=== PATIENT | female | born 1935 | race Caucasian/White ===

== ENCOUNTER → 2020-01-17 | Outpatient (CLI) | payer MEDICARE ==
--- NOTE | 2020-01-17 14:09 | NM ---
EXAMINATION TYPE: NM bone scan whole body DATE OF EXAM: 01/17/2020 COMPARISON: NONE HISTORY: Pain Delayed whole-body scanning was performed following the injection of 24.6 mCi Tc 99m MDP. Images acq uired 3 hours post injection. FINDINGS: There is intense radiotracer accumulation noted to involve the T12 vertebral segment and to a lesser extent the L1 vertebral segment. There are also focal intense bilateral areas of uptake involving the approximate T10 and T11 segments within the pedicular regions which may reflect spondylolysis. Under lying lesions would be difficult to exclude. There is degenerative uptake noted about the shoulders, sternoclavicular joints, wrists, knees and ankles and mid feet. Periodontal disease right hemimandibl e. IMPRESSION: 1. Nonspecific intense uptake involving the T12 and to a lesser extent the L1 vertebral segments whic h may reflect recent nonspecific fractures. 3. Pedicle uptake as discussed above.
== END | disposition home or self-care (01) ==
LOC: RADNMMAIN 09:34
PROVIDERS: ATTEND Physical Medicine & Rehabilitation
DX: M47.817 Spondylosis without myelopathy or radiculopathy, lumbosacral region (principal); M41.26 Other idiopathic scoliosis, lumbar region; M43.16 Spondylolisthesis, lumbar region; M16.0 Bilateral primary osteoarthritis of hip; M48.062 Spinal stenosis, lumbar region with neurogenic claudication; Z86.39 Personal history of other endocrine, nutritional and metabolic disease
CPT/HCPCS: 78306; A9503

== ENCOUNTER 2022-07-20 14:51 | Inpatient (IN) | payer MEDICARE ==
--- NOTE | 2022-07-20 15:37 | ED ---
General Adult HPI - General Chief complaint: Chest Pain Stated complaint: Chest discomfort Time Seen by Provider: 07/20/22 15:13 Source: EMS Mode of arrival: EMS Limitations: no limitations - History of Present Illness Initial comments: Dictation was produced using [employer] dictation software. please excuse any grammatical, word or spelling errors. Chief Complaint: 86-year-old female presents to the emergency department with chest pain History of Present Illness: Patient is a 86-year-old male presents to the emergency department with chest pain. She described it as like a pressure sitting on her chest earlier today. He called EMS after having symptoms for several minutes. EMS arrived provide patient with aspirin and nitroglycerin. She states that the medicine results of symptoms. Patient denies any history of heart attacks. She states that she does have strong family history. Patient has history of diabetes and dyslipidemia. Patient is asymptomatic at the bedside. The ROS documented in this emergency department record has been reviewed and confirmed by me. Those systems with pertinent positive or negative responses have been documented in the HPI. All other systems are other negative and/or noncontributory. PHYSICAL EXAM: General Impression: Alert and oriented x3, not in acute distress HEENT: Normocephalic atraumatic, extra-ocular movements intact, pupils equal and reactive to light bilaterally, mucous membranes moist. Cardiovascular: Heart regular rate and rhythm Chest: Able to complete full sentences, no retractions, no tachypnea Abdomen: abdomen soft, non-tender, non-distended, no organomegaly Musculoskeletal: Pulses present and equal in all extremities, no peripheral edema Motor: no focal deficits noted Neurological: CN II-XII grossly intact, no focal motor or sensory deficits noted Skin: Intact with no visualized rashes Psych: Normal affect and mood ED course: 86-year-old female presents to the emergency department for symptoms concerning for ACS. Ends upon arrival are within acceptable limits. Patient has deep T-wave inversions in V3 and aVF. No ST elevations EKG concerning for ischemia Nursing notes and chart review was performed EKG interpreted by me: Ventricular rate 61, sinus rhythm,. 159, QRS 92, QTC 428. No GA prolongation, no QTC prolongation. T-wave inversions in lead 3 and aVF. EKG is suspicious for ischemia. Repeat EKG negative for dynamic changes Laboratory evaluation obtained. CBC, coag panel is unremarkable. Metabolic panel is negative. Troponin is 3.910. Chest x-ray shows medial lobe opacity concerning for mass or adenopathy. Started on heparin. Reevaluated at bedside at 4:30 PM. Continues to deny any chest symptoms currently. Patient started on heparin will be admitted with consultation to cardiology. Case discussed with Dr. Ojeda who is willing to accept patients care on behalf of of [facility] hospitalist group. Critical care time 33 minutes - Related Data Allergies Allergy/AdvReac Type Severity Reaction Status Date / Time No Known Allergies Allergy Verified 07/20/22 15:07 Review of Systems ROS Statement: Those systems with pertinent positive or pertinent negative responses have been documented in the HPI. ROS Other: All systems not noted in ROS Statement are negative. Past Medical History Past Medical History: Diabetes Mellitus, Hyperlipidemia, Hypertension History of Any Multi-Drug Resistant Organisms: None Reported Past Surgical History: Hysterectomy, Orthopedic Surgery Past Psychological History: No Psychological Hx Reported Smoking Status: Never smoker Past Alcohol Use History: None Reported Past Drug Use History: None Reported General Exam Limitations: no limitations Course Vital Signs 07/20/22 15:03 Pulse Rate 71 Respiratory 18 Rate Blood Pressure 156/81 O2 Sat by Pulse 100 Oximetry Medical Decision Making - Lab Data Result diagrams: 07/20/22 15:30 07/20/22 15:30 Lab Results 07/20/22 07/20/22 07/20/22 Range/Units 15:30 15:30 15:30 WBC 8.5 (3.8-10.6) k/uL RBC 3.93 (3.80-5.40) m/uL Hgb 12.3 (11.4-16.0) gm/dL Hct 37.4 (34.0-46.0) % MCV 95.1 (80.0-100.0) fL MCH 31.4 (25.0-35.0) pg MCHC 33.0 (31.0-37.0) g/dL RDW 13.9 (11.5-15.5) % Plt Count 251 (150-450) k/uL MPV 8.6 Neutrophils % 78 % Lymphocytes % 12 % Monocytes % 6 % Eosinophils % 1 % Basophils % 0 % Neutrophils # 6.6 (1.3-7.7) k/uL Lymphocytes # 1.0 (1.0-4.8) k/uL Monocytes # 0.5 (0-1.0) k/uL Eosinophils # 0.1 (0-0.7) k/uL Basophils # 0.0 (0-0.2) k/uL PT 10.7 (9.0-12.0) sec INR 1.0 (<1.2) APTT 25.6 (22.0-30.0) sec Sodium 138 (137-145) mmol/L Potassium 4.2 (3.5-5.1) mmol/L Chloride 106 (98-107) mmol/L Carbon Dioxide 27 (22-30) mmol/L Anion Gap 5 mmol/L BUN 19 H (7-17) mg/dL Creatinine 0.86 (0.52-1.04) mg/dL Est GFR (CKD-EPI)AfAm 71 (>60 ml/min/1.73 sqM) Est GFR (CKD-EPI)NonAf 61 (>60 ml/min/1.73 sqM) Glucose 194 H (74-99) mg/dL Calcium 8.7 (8.4-10.2) mg/dL Magnesium 1.8 (1.6-2.3) mg/dL Total Bilirubin 0.6 (0.2-1.3) mg/dL AST 62 H (14-36) U/L ALT 16 (4-34) U/L Alkaline Phosphatase 63 (38-126) U/L Troponin I (0.000-0.034) ng/mL Total Protein 6.5 (6.3-8.2) g/dL Albumin 3.8 (3.5-5.0) g/dL 07/20/22 Range/Units 15:30 WBC (3.8-10.6) k/uL RBC (3.80-5.40) m/uL Hgb (11.4-16.0) gm/dL Hct (34.0-46.0) % MCV (80.0-100.0) fL MCH (25.0-35.0) pg MCHC (31.0-37.0) g/dL RDW (11.5-15.5) % Plt Count (150-450) k/uL MPV Neutrophils % % Lymphocytes % % Monocytes % % Eosinophils % % Basophils % % Neutrophils # (1.3-7.7) k/uL Lymphocytes # (1.0-4.8) k/uL Monocytes # (0-1.0) k/uL Eosinophils # (0-0.7) k/uL Basophils # (0-0.2) k/uL PT (9.0-12.0) sec INR (<1.2) APTT (22.0-30.0) sec Sodium (137-145) mmol/L Potassium (3.5-5.1) mmol/L Chloride (98-107) mmol/L Carbon Dioxide (22-30) mmol/L Anion Gap mmol/L BUN (7-17) mg/dL Creatinine (0.52-1.04) mg/dL Est GFR (CKD-EPI)AfAm (>60 ml/min/1.73 sqM) Est GFR (CKD-EPI)NonAf (>60 ml/min/1.73 sqM) Glucose (74-99) mg/dL Calcium (8.4-10.2) mg/dL Magnesium (1.6-2.3) mg/dL Total Bilirubin (0.2-1.3) mg/dL AST (14-36) U/L ALT (4-34) U/L Alkaline Phosphatase (38-126) U/L Troponin I 3.910 H* (0.000-0.034) ng/mL Total Protein (6.3-8.2) g/dL Albumin (3.5-5.0) g/dL Disposition Clinical Impression: NSTEMI (non-ST elevated myocardial infarction) Disposition: ADMITTED IP TO THIS HOSP Condition: Serious Referrals: Pierce Melendez MD [Primary Care Provider] - 1-2 days Decision Time: 16:37
[2022-07-20 15:42] LABS: Basophils % (A) 0 %; Eosinophils # (A) 0.1 k/uL (0-0.7); Eosinophils % (A) 1 %; HCT 37.4 % (34.0-46.0); HGB 12.3 gm/dL (11.4-16.0); Lymphocytes % (A) 12 %; MCH 31.4 pg (25.0-35.0); MCV 95.1 fL (80.0-100.0); Mean Platelet Volume 8.6; Monocytes # (A) 0.5 k/uL (0-1.0); Monocytes % (A) 6 %; Neutrophils # (A) 6.6 k/uL (1.3-7.7); Neutrophils % (A) 78 %; Platelet Count 251 k/uL (150-450); RBC 3.93 m/uL (3.80-5.40); RDW 13.9 % (11.5-15.5); WBC 8.5 k/uL (3.8-10.6)
[2022-07-20 15:51] LABS: Partial Thromboplastin Time 25.6 sec (22.0-30.0); Prothrombin Time 10.7 sec (9.0-12.0)
[2022-07-20 15:58] LABS: Albumin 3.8 g/dL (3.5-5.0); Calcium 8.7 mg/dL (8.4-10.2); Magnesium 1.8 mg/dL (1.6-2.3); Potassium 4.2 mmol/L (3.5-5.1); Total Bilirubin 0.6 mg/dL (0.2-1.3); Total Protein 6.5 g/dL (6.3-8.2)
--- NOTE | 2022-07-20 16:19 | XR ---
EXAMINATION TYPE: XR chest 2V DATE OF EXAM: 07/20/2022 3:41 PM COMPARISON: None TECHNIQUE: XR chest 2V Frontal and lateral views of the chest. CLINICAL INDICATION:Female, 86 years old with history of Chest Pain; FINDINGS: Lungs/Pleura: Medial aspect of the right upper lobe demonstrates a 4.2 x 2.4 cm opacity. There is no evidence of pleural effusion, focal consolidation, or pneumothorax. Pulmonary vascularity: Unremarkable. Heart/mediastinum: Cardiomediastinal silhouette is unremarkable. Musculoskeletal: No acute osseous pathology. IMPRESSION: Right upper lobe medial opacity concerning for mass or adenopathy. Cross-sectional imaging required f or further evaluation.
[2022-07-20] MEDS ORDERED: HEPARIN SODIUM 1,000 UN/ML (10ML VL) IV ONE (16:20)
[2022-07-20] MEDS ORDERED: HEPARIN SODIUM 1,000 UN/ML (10ML VL) IV PRN (16:20)
[2022-07-20] MEDS ORDERED: HEPARIN SOD,PORK IN 0.45% NACL 25,000 UNIT in 0.45% NACL 1 250ML.BAG IV SCH (16:30)
[2022-07-20] MEDS ORDERED: NITROGLYCERIN SL TABS 0.4 MG TAB SUBLINGUAL PRN (16:37)
[2022-07-20] MEDS: NITROGLYCERIN OINT 1 INCH/GM PACKET TOPICAL SCH (18:31)
[2022-07-20 20:05] LABS: Glucose,Whole Blood 207 mg/dL (70-110)
[2022-07-20] MEDS ORDERED: DEXTROSE 50% SYRINGE 50 ML IVP PRN ×2 (20:47)
[2022-07-20 20:59] LABS: Glucose,Whole Blood 221 mg/dL (70-110)
[2022-07-20] MEDS: INSULIN ASPART (NovoLOG) 100 UNIT/ML VIAL SQ SCH (21:06)
[2022-07-20] MEDS: INSULIN DETEMIR (LEVEMIR) 100 UNIT/ML SYR SQ SCH (21:54)
[2022-07-21] MEDS: NITROGLYCERIN OINT 1 INCH/GM PACKET TOPICAL SCH ×3 (00:24→18:13)
[2022-07-21 06:16] LABS: Glucose,Whole Blood 140 mg/dL (70-110)
[2022-07-21] MEDS: INSULIN ASPART (NovoLOG) 100 UNIT/ML VIAL SQ SCH ×4 (06:38→22:00)
[2022-07-21] MEDS: hydrALAZINE HCL 25 MG TAB PO SCH ×2 (06:40→21:57)
[2022-07-21] MEDS: PANTOPRAZOLE 40 MG TABLET PO SCH (06:40)
[2022-07-21] MEDS: ATORVASTATIN 20 MG TAB PO SCH (08:05)
[2022-07-21] MEDS: METOPROLOL SUCCINATE (ER) 25 MG TAB.ER.24H PO SCH (08:06)
[2022-07-21] MEDS ORDERED: ASPIRIN 325 MG TAB PO SCH (09:00)
[2022-07-21 10:49] LABS: LDL Cholesterol,Calculated 55.7 mg/dL (0.0-131.0); VLDL Calculation 17.48 mg/dL (5.00-40.00)
--- NOTE | 2022-07-21 11:32 | P.HPIM ---
History of Present Illness 86-year-old female came in with complaints of chest pressure like sensation. She doesn't have any previous history of coronary artery disease patient started having symptoms of shortness of breath about couple days ago. Patient pain is better patient pain is nonradiating no not associated with diaphoresis. Patient does have a syncopal event family history of coronary artery disease. A since troponins of 4.7, 4.2 and 3.9 REVIEW OF SYSTEMS: CONSTITUTIONAL: No fever, no malaise, no fatigue. HEENT: No recent visual problems or hearing problems. Denied any sore throat. CARDIOVASCULAR: No orthopnea, PND, no palpitations, no syncope. PULMONARY: No shortness of breath, no cough, no hemoptysis. GASTROINTESTINAL: No diarrhea, no nausea, no vomiting, no abdominal pain. NEUROLOGICAL: No headaches, no weakness, no numbness. HEMATOLOGICAL: Denies any bleeding or petechiae. GENITOURINARY: Denies any burning micturition, frequency, or urgency. MUSCULOSKELETAL/RHEUMATOLOGICAL: Denies any joint pain, swelling, or any muscle pain. ENDOCRINE: Denies any polyuria or polydipsia. The rest of the 14-point review of systems is negative. PHYSICAL EXAMINATION: GENERAL: The patient is alert and oriented x3, not in any acute distress. Well developed, well nourished. HEENT: Pupils are round and equally reacting to light. EOMI. No scleral icterus. No conjunctival pallor. Normocephalic, atraumatic. No pharyngeal erythema. No thyromegaly. CARDIOVASCULAR: S1 and S2 present. No murmurs, rubs, or gallops. PULMONARY: Chest is clear to auscultation, no wheezing or crackles. ABDOMEN: Soft, nontender, nondistended, normoactive bowel sounds. No palpable organomegaly. MUSCULOSKELETAL: No joint swelling or deformity. EXTREMITIES: No cyanosis, clubbing, or pedal edema. NEUROLOGICAL: Gross neurological examination did not reveal any focal deficits. SKIN: No rashes. Assessment and plan possible non-ST elevation myocardial infarction: Patient may have had TX about couple days ago. Patient is on IV heparin cardiology will evaluate the patient. Patient doesn't have any chest pain at this time -Shortness of breath secondary to TX. -Type 2 diabetes mellitus patient's hemoglobin A1c 6.8 well-controlled blood sugars at home patient uses 40 units of Lantus at home which is cut down to 20 units at this time as patient is nothing by mouth and the patient is also on sliding scale insulin. Patient will be switched back to 40 units once she is started on her diet. Hyperlipidemia Hypertension - DVT prophylaxis: She is on IV heparin Past Medical History Past Medical History: Diabetes Mellitus, Hyperlipidemia, Hypertension History of Any Multi-Drug Resistant Organisms: None Reported Past Surgical History: Hysterectomy, Orthopedic Surgery Past Psychological History: No Psychological Hx Reported Smoking Status: Never smoker Past Alcohol Use History: None Reported Past Drug Use History: None Reported Medications and Allergies Home Medications Medication Instructions Recorded Confirmed Type Ergocalciferol (Vitamin D2) 1,250 mcg PO STEPHENSON 07/20/22 07/20/22 History [Drisdol (50,000 Iu)] Ibuprofen [Motrin] 800 mg PO Q6H PRN 07/20/22 07/20/22 History Insulin Glargine,Hum.rec.anlog 40 units SQ HS 07/20/22 07/20/22 History [Lantus Solostar Pen] Insulin Lispro [humaLOG Kwikpen] See Protocol SQ TID-W/MEALS 07/20/22 07/20/22 History Metoprolol Succinate [Metoprolol 25 mg PO DAILY 07/20/22 07/20/22 History Succinate ER] Pantoprazole [Protonix] 40 mg PO DAILY 07/20/22 07/20/22 History Rosuvastatin [Crestor] 10 mg PO DAILY 07/20/22 07/20/22 History hydrALAZINE HCL [Apresoline] 25 mg PO BID-W/MEALS 07/20/22 07/20/22 History Allergies Allergy/AdvReac Type Severity Reaction Status Date / Time No Known Allergies Allergy Verified 07/20/22 17:38 Physical Exam Vitals: Vital Signs Temp Pulse Pulse Resp BP BP Pulse Ox 07/21/22 08:00 97.6 F 71 16 134/70 98 07/21/22 03:58 98.3 F 63 12 135/74 99 07/21/22 00:00 98.5 F 66 12 139/70 97 07/20/22 20:00 97.9 F 63 12 123/55 100 07/20/22 19:35 97 07/20/22 17:46 97.9 F 78 14 134/72 100 07/20/22 17:09 97.9 F 63 18 156/83 98 07/20/22 15:03 71 18 156/81 100 Intake and Output 07/20/22 07/21/22 07/21/22 22:59 06:59 14:59 Intake Total 52.197 Balance 52.197 Intake: Intake, IV Titration 52.197 Amount Heparin Sod,Pork in 0.45% 52.197 NaCl 25,000 unit In 0.45 % NaCl 1 250ml.bag @ 12 UNITS/KG/HR 7.62 mls/hr IV .Q24H [facility] Rx#: [id number] Other: Voiding Method Toilet Toilet Toilet # Voids 1 Weight 63.503 kg Results CBC & Chem 7: 07/20/22 15:30 07/20/22 15:30 Labs: Abnormal Lab Results - Last 24 Hours (Table) 07/20/22 07/20/22 07/20/22 Range/Units 15:30 15:30 18:45 APTT (22.0-30.0) sec BUN 19 H (7-17) mg/dL Glucose 194 H (74-99) mg/dL POC Glucose (mg/dL) (70-110) mg/dL Hemoglobin A1c (0.0-6.0) % AST 62 H (14-36) U/L Troponin I 3.910 H* 4.210 H* (0.000-0.034) ng/mL 07/20/22 07/20/22 07/20/22 Range/Units 20:04 20:58 22:31 APTT (22.0-30.0) sec BUN (7-17) mg/dL Glucose (74-99) mg/dL POC Glucose (mg/dL) 207 H 221 H (70-110) mg/dL Hemoglobin A1c (0.0-6.0) % AST (14-36) U/L Troponin I 4.740 H* (0.000-0.034) ng/mL 07/20/22 07/20/22 07/21/22 Range/Units 22:31 22:31 06:14 APTT 76.3 H (22.0-30.0) sec BUN (7-17) mg/dL Glucose (74-99) mg/dL POC Glucose (mg/dL) 140 H (70-110) mg/dL Hemoglobin A1c 6.8 H (0.0-6.0) % AST (14-36) U/L Troponin I (0.000-0.034) ng/mL 07/21/22 Range/Units 06:32 APTT 44.2 H (22.0-30.0) sec BUN (7-17) mg/dL Glucose (74-99) mg/dL POC Glucose (mg/dL) (70-110) mg/dL Hemoglobin A1c (0.0-6.0) % AST (14-36) U/L Troponin I (0.000-0.034) ng/mL Thrombosis Risk Factor Assmnt - Choose All That Apply Each Risk Factor Represents 2 Points: Age 61-74 years Each Risk Factor Represents 3 Points: Age 75 years or older Other congenital or acquired thrombophilia - If yes, enter type in comment: No Thrombosis Risk Factor Assessment Total Risk Factor Score: 5 Thrombosis Risk Factor Assessment Level: High Risk
[2022-07-21 12:06] LABS: Glucose,Whole Blood 108 mg/dL (70-110)
[2022-07-21] MEDS ORDERED: ATORVASTATIN 80 MG TAB PO STA (13:04)
[2022-07-21] MEDS ORDERED: ASPIRIN 325 MG TAB PO STA (13:04)
[2022-07-21] MEDS ORDERED: NITROGLYCERIN SL TABS 0.4 MG TAB SUBLINGUAL PRN ×2 (13:04→19:01)
[2022-07-21] MEDS ORDERED: ALPRAZolam 0.5 MG TAB PO PRN (13:04)
[2022-07-21] MEDS ORDERED: ALPRAZolam 0.25 MG TAB PO PRN (13:04)
[2022-07-21] MEDS ORDERED: fentaNYL (PF) 50 MCG/ML 2 ML AMP ONE (15:44)
[2022-07-21] MEDS ORDERED: HEPARIN SODIUM 1,000 UN/ML (10ML VL) ONE (15:44)
[2022-07-21] MEDS ORDERED: VERAPAMIL 2.5 MG/ML 2 ML AMP ONE (15:44)
[2022-07-21] MEDS ORDERED: SODIUM CHLORIDE 0.9% 1,000 ML IV ONE (15:47)
[2022-07-21] MEDS ORDERED: IV FLUID CONTINUATION 1,000 ML IV ONE (15:56)
[2022-07-21] MEDS: fentaNYL (PF) 50 MCG/ML 2 ML AMP IV ONE ×2 (16:04→17:06)
[2022-07-21] MEDS ORDERED: MIDAZOLAM 2 MG/2 ML VIAL IV ONE (16:04)
[2022-07-21] MEDS: LIDOCAINE 1% INJ 10MG/ML (5 ML VIAL-PF) SQ ONE ×2 (16:06→17:09)
[2022-07-21] MEDS ORDERED: VERAPAMIL SYRINGE (5 MG/10 ML) INTRAARTER ONE (16:08)
[2022-07-21] MEDS: HEPARIN SODIUM 1,000 UN/ML (10ML VL) IV ONE ×3 (16:26→17:25)
[2022-07-21] MEDS ORDERED: CLOPIDOGREL 75 MG TAB ONE (16:30)
[2022-07-21] MEDS ORDERED: CLOPIDOGREL 75 MG TAB PO ONE (16:34)
[2022-07-21] MEDS ORDERED: IOPAMIDOL-370 125ML BTL INJ ONE (17:39)
[2022-07-21] MEDS ORDERED: RX INFO: IV CONTRAST WAS GIVEN 1 EACH MISC MISCELLANE PRN (19:01)
[2022-07-21] MEDS ORDERED: ATROPINE SULFATE 0.1 MG/ML 10ML SYRINGE IV PRN (19:01)
[2022-07-21] MEDS ORDERED: MAG HYDROX/AL HYDROX/SIMETH 30 ML CUP PO PRN (19:01)
[2022-07-21] MEDS ORDERED: ZOLPIDEM 5 MG TAB PO PRN (19:01)
[2022-07-21] MEDS: HYDROcodone/APAP 5-325MG 1 EACH TAB PO PRN (19:21)
[2022-07-21 20:33] LABS: Glucose,Whole Blood 161 mg/dL (70-110)
--- NOTE | 2022-07-21 21:09 | P.PRCINT ---
Percutaneous Coronary Int. - Percutaneous Coronary Intervention Percutaneous Coronary Intervention: PROCEDURES PERFORMED: Left heart catheterization, bilateral coronary angiography, IVUS RCA, PCI ostial RCA with a 3.5 x 12mm Xience SEBAS INDICATION: NSTEMI PROCEDURE: After the risks, benefits and alternatives of the above mentioned procedure explained in detail with the patient, informed consent was obtained. Patient was taken to the catheterization lab and prepped and draped in usual fashion. 1% lidocaine was used to anesthetize the right radial artery. A 6Fr sheath was partially inserted into the right radial site however appeared to be subintimal and not drawing back and therefore was pulled and pressure was held. Again a 6Fr sheath was placed in the right radial artery and had good blood return. Next left coronary angiography was performed with a 5-Macedonian JL 3.5 catheter and right coronary angiography was performed with a 5-Macedonian JR5 catheter in various views. Later in the procedure, a 6Fr AR 2.0 catheter was inserted into the left ventricle and pressure measurements were obtained. There was extreme tortuosity of the innominate artery making manipulation of the catheters very difficult. The decision was made to perform PCI of the RCA as this was the culprit. Initially a 6Fr AR 2 guide was attempted however not able to properly sit, then a 6Fr FR5 guide was used and able to subselectivey be engaged. A 0.014 whisper wire was advanced into the distal RCA. Initial balloon angioplasty with a 2.5 x 12mm balloon was used to predilate the ostial RCA lesion. There was no backup support and even with the help of a guideliner, the FR5 and wire came out. Attempts with a KR4H and FR4 were made however unable to easily manipulate the catheter given innominate toruosity. Patient did have some dynamic EKG changes however no signficant angina or chest pain. Given difficulty from a radial approach, the procedure was changed to femoral approach. A 6Fr sheath was placed in the right femoral artery using micropuncture. A 6Fr FR 5 catheter was used to engage the RCA. a 0.014 whisper wire and a 0.014 BMW wire were advanced into the distal RCA. The lesion was again predilated with a 3.0 NC balloon. Next a 3.5 x 12mm Xience SEBAS was deployed at the ostium of the RCA. The prox imal portion was "flared" with the same 3.5 balloon. IVUS was performed however only able to advance the IVUS catheter to the mid RCA. There was an additional radiolucency of the mid RCA which may have been related to a calcified thrombus however did not appear flow limiting or significant and given inability to easily pass a IVUS catheter to the lesion, was felt best treated medically. The wire was pulled and final angiograms were performed. Pre intervention there was 99% stenosis and HEENA 2 flow and post intervention there was <10% stenosis and HEENA 3 flow. The right radial sheath was removed and a TR band was placed with hemostasis achieved. Right femoral angiogram showed adequate anatomy for closure and therefore a 6Fr Angioseal was placed with hemostasis achieved. The patient tolerated the procedure well. Patient was transported back to the post catheterization holding area in stable condition. Conscious Sedation: Patient was monitored under the direct supervision of vision of myself for conscious sedation using Versed and fentanyl for a total duration of 116 minutes HEMODYNAMICS: Ao: 139/71 LV: 138/9, LVEDP 22mmHg SELECTIVE CORONARY ARTERIOGRAPHY: LEFT MAIN: The left main is a large caliber vessel which bifurcates into the LAD and circumflex. There is no significant stenosis. LEFT ANTERIOR DESCENDING CORONARY ARTERY: LAD is a large caliber vessel which wraps around to the apex. There is a lonf proximal to mid 30% stenosis and a more focal 80% stenosis of the mid LAD. There is a 50% stenosis of a small caliber diagonal 3 and otherwise mild luminal irregularties. LEFT CIRCUMFLEX CORONARY ARTERY: Left circumflex is a moderate caliber vessel with mild luminal irregularities. RIGHT CORONARY ARTERY: The right coronary artery is a small to moderate caliber vessel which gives off a PDA and PLV branch and is the dominant vessel. There is an ostial RCA 99% stenosis. There is an additional 50-60% radiolucency of the mid RCA which may be consistent with old calcified thrombus. There is other diffuse 20-30% stenosis. FINAL IMPRESSION: 1. CAD as described above including 80% mid LAD, 50% small caliber diagonal 3 branch, 99% ostial RCA stenosis and 50-60% radiolucenct mid RCA stenosis which may represent old calcified thrombus 2. S/p PCI ostial RCA with a 3.5 x 12mm Xience SEBAS 3. Elevated left sided filling pressures PLAN: 1. Aggressive risk factor modification per most recent ACC/AHA guidelines. 2. Continue dual antiplatelets for 12 months with aspirin and Plavix. 3. May consider staged PCI of LAD.
[2022-07-21] MEDS: INSULIN DETEMIR (LEVEMIR) 100 UNIT/ML SYR SQ SCH (21:57)
[2022-07-22 06:07] LABS: Glucose,Whole Blood 135 mg/dL (70-110)
[2022-07-22] MEDS: NITROGLYCERIN OINT 1 INCH/GM PACKET TOPICAL SCH ×4 (06:55→17:36)
[2022-07-22] MEDS: PANTOPRAZOLE 40 MG TABLET PO SCH (06:56)
[2022-07-22] MEDS: INSULIN ASPART (NovoLOG) 100 UNIT/ML VIAL SQ SCH ×4 (06:56→21:08)
[2022-07-22] MEDS: hydrALAZINE HCL 25 MG TAB PO SCH ×2 (06:56→18:23)
[2022-07-22] MEDS ORDERED: HEPARIN SODIUM,PORCINE 10,000 UNIT in SODIUM CHLORIDE 0.9% 1,000 ML IRRIGATION PRN (07:00)
[2022-07-22] MEDS ORDERED: HEPARIN SODIUM,PORCINE 2,500 UNIT in SODIUM CHLORIDE 0.9% 250 ML IRRIGATION PRN (07:00)
[2022-07-22 08:21] LABS: HCT 34.9 % (34.0-46.0); HGB 11.3 gm/dL (11.4-16.0); MCH 31.5 pg (25.0-35.0); MCHC 32.5 g/dL (31.0-37.0); MCV 96.8 fL (80.0-100.0); Mean Platelet Volume 8.9; Platelet Count 221 k/uL (150-450); RBC 3.61 m/uL (3.80-5.40); RDW 13.8 % (11.5-15.5); WBC 8.7 k/uL (3.8-10.6)
[2022-07-22 08:39] LABS: African American GFR (CKD) >90 (>60 ml/min/1.73 sqM); Anion Gap 7 mmol/L; Blood Urea Nitrogen 11 mg/dL (7-17); Calcium 8.1 mg/dL (8.4-10.2); Carbon Dioxide 24 mmol/L (22-30); Chloride 105 mmol/L (98-107); Glucose 130 mg/dL (74-99); Non-African American GFR(CKD) 80 (>60 ml/min/1.73 sqM); Potassium 4.3 mmol/L (3.5-5.1); Sodium 136 mmol/L (137-145)
[2022-07-22] MEDS: ASPIRIN 81 MG PO SCH (09:01)
[2022-07-22] MEDS: ATORVASTATIN 20 MG TAB PO SCH (09:02)
[2022-07-22] MEDS: METOPROLOL SUCCINATE (ER) 25 MG TAB.ER.24H PO SCH (09:02)
[2022-07-22] MEDS: CLOPIDOGREL 75 MG TAB PO SCH (09:02)
[2022-07-22] MEDS: HYDROcodone/APAP 5-325MG 1 EACH TAB PO PRN ×2 (11:00→21:10)
[2022-07-22 11:36] LABS: Glucose,Whole Blood 112 mg/dL (70-110)
[2022-07-22 12:51] VITALS: BMI 25.1
--- NOTE | 2022-07-22 12:57 | P.CRDCN ---
History of Present Illness Consult date: 07/21/22 History of present illness: Late note, patient seen and examined 07/21 HISTORY OF PRESENTING ILLNESS This is a pleasant 86-year-old with past medical history significant for diabetes mellitus type 2, hyperlipidemia, strong family history of CAD. She does not follow in the office with anyone. She started to develop chest pain and feeling of an elephant on her chest 07/20 or the prior day and therefore presented to emergency department. Troponins increased up to 5. EKG shows sinus rhythm with diffuse ST depressions. She has never had heart catheterization previously. Normally is fairly active walking [place] REVIEW OF SYSTEMS At the time of my exam: CONSTITUTIONAL: Denies fever or chills. CARDIOVASCULAR: +chest pain, no shortness of breath, orthopnea, PND or palpitations. RESPIRATORY: Denies cough. GASTROINTESTINAL: Denies abdominal pain, diarrhea, constipation, nausea or vomiting. MUSCULOSKELETAL: Denies myalgias. NEUROLOGIC: Denies numbness, tingling or weakness. ENDOCRINE: Denies fatigue, weight change, polydipsia or polyurina. GENITOURINARY: Denies burning, hematuria or urgency with micturation. HEMATOLOGIC: Denies history of anemia or bleeding. PHYSICAL EXAMINATION Vital signs reviewed. CONSTITUTIONAL: No apparent distress. HEENT: Head is normocephalic. Pupils are equal, round. Sclerae anicteric. Mucous membranes of the mouth are moist. No JVD. No carotid bruit. CHEST EXAMINATION: Lungs are clear to auscultation. No chest wall tenderness is noted on palpation or with deep breathing. HEART EXAMINATION: Regular rate and rhythm. S1, S2 heard. No murmurs, gallops or rub. ABDOMEN: Soft, nontender. Positive bowel sounds. EXTREMITIES: 2+ peripheral pulses, no lower extremity edema and no calf tenderness. NEUROLOGIC EXAMINATION: Patient is awake, alert and oriented x3. ASSESSMENT 1. Non-STEMI appears type I mechanism 2. Hypertension 3. Family history CAD 4. Diabetes mellitus type 2 PLAN Patient having angina-type symptoms which are new onset with troponin elevation and EKG changes. Discussed recommendations for heart catheterization as patient is agreeable. Past Medical History Past Medical History: Diabetes Mellitus, Hyperlipidemia, Hypertension History of Any Multi-Drug Resistant Organisms: None Reported Past Surgical History: Hysterectomy, Orthopedic Surgery Past Psychological History: No Psychological Hx Reported Smoking Status: Never smoker Past Alcohol Use History: None Reported Past Drug Use History: None Reported Medications and Allergies Home Medications Medication Instructions Recorded Confirmed Type Ergocalciferol (Vitamin D2) 1,250 mcg PO STEPHENSON 07/20/22 07/20/22 History [Drisdol (50,000 Iu)] Ibuprofen [Motrin] 800 mg PO Q6H PRN 07/20/22 07/20/22 History Insulin Glargine,Hum.rec.anlog 40 units SQ HS 07/20/22 07/20/22 History [Lantus Solostar Pen] Insulin Lispro [humaLOG Kwikpen] See Protocol SQ TID-W/MEALS 07/20/22 07/20/22 History Metoprolol Succinate [Metoprolol 25 mg PO DAILY 07/20/22 07/20/22 History Succinate ER] Pantoprazole [Protonix] 40 mg PO DAILY 07/20/22 07/20/22 History Rosuvastatin [Crestor] 10 mg PO DAILY 07/20/22 07/20/22 History hydrALAZINE HCL [Apresoline] 25 mg PO BID-W/MEALS 07/20/22 07/20/22 History Allergies Allergy/AdvReac Type Severity Reaction Status Date / Time No Known Allergies Allergy Verified 07/20/22 17:38 Physical Exam Vitals: Vital Signs Temp Pulse Resp BP BP Pulse Ox FiO2 07/22/22 04:00 96.6 F L 81 17 154/75 97 07/22/22 02:00 16 07/21/22 23:40 97.0 F L 71 16 140/74 97 07/21/22 22:47 97.1 F L 66 16 147/64 94 L 07/21/22 22:20 97.1 F L 77 16 133/66 96 07/21/22 21:50 97.1 F L 78 16 144/71 98 07/21/22 20:20 96.3 F L 67 16 133/59 99 07/21/22 20:05 98 21 07/21/22 20:00 16 07/21/22 19:18 85 16 143/79 97 07/21/22 18:26 75 16 146/78 98 07/21/22 18:15 85 16 145/72 95 Intake and Output 07/21/22 07/22/22 07/22/22 22:59 06:59 14:59 Intake Total 817.052 Output Total 200 300 Balance 617.052 -300 Intake: IV 700 Intake, IV Titration 117.052 Amount Heparin Sod,Pork in 0.45% 117.052 NaCl 25,000 unit In 0.45 % NaCl 1 250ml.bag @ 12 UNITS/KG/HR 7.62 mls/hr IV .Q24H [facility] Rx#: [id number] Output: Urine 200 300 Other: Voiding Method Toilet Toilet Weight 64.4 kg 64.4 kg Results 07/22/22 07:06 07/22/22 07:06 CBC 07/22/22 Range/Units 07:06 WBC 8.7 (3.8-10.6) k/uL RBC 3.61 L (3.80-5.40) m/uL Hgb 11.3 L (11.4-16.0) gm/dL Hct 34.9 (34.0-46.0) % Plt Count 221 (150-450) k/uL Comprehensive Metabolic Panel 07/22/22 Range/Units 07:06 Sodium 136 L (137-145) mmol/L Potassium 4.3 (3.5-5.1) mmol/L Chloride 105 (98-107) mmol/L Carbon Dioxide 24 (22-30) mmol/L BUN 11 (7-17) mg/dL Creatinine 0.65 (0.52-1.04) mg/dL Glucose 130 H (74-99) mg/dL Calcium 8.1 L (8.4-10.2) mg/dL Current Medications Generic Name Dose Route Start Last Admin Trade Name Freq PRN Reason Stop Dose Admin Hydrocodone Bitart/Acetaminophen 1 each 07/21/22 19:12 07/22/22 11:00 Hydrocodone/Apap 5-325mg 1 Each Tab PO 1 each Q6HR PRN Administration Pain Al Hydroxide/Mg Hydroxide 30 ml 07/21/22 19:01 Mag Hydrox/Al Hydrox/Simeth 30 Ml Cup PO Q4HR PRN Heartburn Alprazolam 0.25 mg 07/21/22 13:04 07/21/22 18:13 Alprazolam 0.25 Mg Tab PO 0.25 mg Q6HR PRN Administration Mild Anxiety Alprazolam 0.5 mg 07/21/22 13:04 Alprazolam 0.5 Mg Tab PO Q6HR PRN Moderate Anxiety Aspirin 81 mg 07/22/22 09:00 07/22/22 09:01 Aspirin 81 Mg PO 81 mg DAILY [facility] Administration Atorvastatin Calcium 20 mg 07/21/22 09:00 07/22/22 09:02 Atorvastatin 20 Mg Tab PO 20 mg DAILY [facility] Administration Atropine Sulfate 0.5 mg 07/21/22 19:01 Atropine Sulfate 0.1 Mg/Ml 10ml Syringe IV ONCE PRN Symptomatic Bradycardia Clopidogrel Bisulfate 75 mg 07/22/22 09:00 07/22/22 09:02 Clopidogrel 75 Mg Tab PO 75 mg DAILY [facility] Administration Protocol Dextrose/Water 25 ml 07/20/22 20:47 Dextrose 50% Syringe 50 Ml IVP PER PROTOCOL PRN Hypoglycemia Protocol Dextrose/Water 50 ml 07/20/22 20:47 Dextrose 50% Syringe 50 Ml IVP PER PROTOCOL PRN Hypoglycemia Protocol Hydralazine HCl 25 mg 07/21/22 07:30 07/22/22 06:56 Hydralazine Hcl 25 Mg Tab PO 25 mg BID-W/MEALS [facility] Administration Heparin Sodium (Porcine) 10, 1,001 mls @ 999 mls/hr 07/22/22 07:00 000 unit/ Sodium Chloride IRRIGATION 07/22/22 23:00 ONCE PRN INTRA-OP Heparin Sodium (Porcine) 2,500 250.5 mls @ 250 mls/hr 07/22/22 07:00 unit/ Sodium Chloride IRRIGATION 07/22/22 23:00 ONCE PRN INTRA-OP Insulin Aspart 0 unit 07/20/22 21:00 07/22/22 06:56 Insulin Aspart (Novolog) 100 Unit/Ml Vial SQ Not Given ACHS [facility] Protocol Insulin Detemir 20 unit 07/20/22 21:00 07/21/22 21:57 Insulin Detemir (Levemir) 100 Unit/Ml Syr SQ 20 unit HS [facility] Administration Metoprolol Succinate 25 mg 07/21/22 09:00 07/22/22 09:02 Metoprolol Succinate (Er) 25 Mg Tab.Er.24h PO 25 mg DAILY [facility] Administration Miscellaneous Information 1 each 07/21/22 19:01 Rx Info: Iv Contrast Was Given 1 Each Misc MISCELLANE 07/23/22 19:01 DAILY PRN Per Protocol Nitroglycerin 0.4 mg 07/20/22 16:37 Nitroglycerin Sl Tabs 0.4 Mg Tab SUBLINGUAL Q5M PRN Chest Pain Nitroglycerin 1 inch 07/20/22 18:00 07/22/22 08:06 Nitroglycerin Oint 1 Inch/Gm Packet TOPICAL Not Given Q6HR [facility] Pantoprazole Sodium 40 mg 07/21/22 07:30 07/22/22 06:56 Pantoprazole 40 Mg Tablet PO 40 mg [id number]-[id number] [facility] Administration Zolpidem Tartrate 5 mg 07/21/22 19:01 Zolpidem 5 Mg Tab PO HS PRN Insomnia Intake and Output 07/21/22 07/22/22 07/22/22 22:59 06:59 14:59 Intake Total 817.052 Output Total 200 300 Balance 617.052 -300 Intake: IV 700 Intake, IV Titration 117.052 Amount Heparin Sod,Pork in 0.45% 117.052 NaCl 25,000 unit In 0.45 % NaCl 1 250ml.bag @ 12 UNITS/KG/HR 7.62 mls/hr IV .Q24H [facility] Rx#: [id number] Output: Urine 200 300 Other: Voiding Method Toilet Toilet Weight 64.4 kg 64.4 kg Patient Weight 07/23/22 06:59 Weight 64.4 kg 07/22/22 07:06 07/22/22 07:06
--- NOTE | 2022-07-22 13:00 | P.PN ---
Subjective HISTORY OF PRESENTING ILLNESS This is a pleasant 86-year-old with past medical history significant for diabetes mellitus type 2, hyperlipidemia, strong family history of CAD. She does not follow in the office with anyone. She started to develop chest pain and feeling of an elephant on her chest 07/20 or the prior day and therefore presented to emergency department. Troponins increased up to 5. EKG shows sinus rhythm with diffuse ST depressions. She has never had heart catheterization previously. Normally is fairly active [place] 07/[place] Patient underwent heart catheterization yesterday which showed 99% RCA stenosis as well as a mid LAD 80% stenosis. She underwent successful PCI of the ostial RCA. She has been having some groin pain which was present even before her heart catheterization. No hematoma. Echocardiogram pending. PHYSICAL EXAMINATION Vital signs reviewed. CONSTITUTIONAL: No apparent distress. HEENT: Head is normocephalic. Pupils are equal, round. Sclerae anicteric. Mucous membranes of the mouth are moist. No JVD. No carotid bruit. CHEST EXAMINATION: Lungs are clear to auscultation. No chest wall tenderness is noted on palpation or with deep breathing. HEART EXAMINATION: Regular rate and rhythm. S1, S2 heard. No murmurs, gallops or rub. ABDOMEN: Soft, nontender. Positive bowel sounds. EXTREMITIES: 2+ peripheral pulses, no lower extremity edema and no calf tenderness. NEUROLOGIC EXAMINATION: Patient is awake, alert and oriented x3. ASSESSMENT 1. Non-STEMI s/p PCI RCA 07/21 2. Hypertension 3. Family history CAD 4. Diabetes mellitus type 2 5. 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 Patient not having any further angina-type symptoms. Await echocardiogram. Possible staged PCI however if asymptomatic may consider medical therapy. Monitor for another 24 hours and possible discharge 07/23 if no significant issues. Objective - Vital Signs Vital signs: Vital Signs Temp 96.6 F L 07/22/22 04:00 Pulse 81 07/22/22 04:00 Resp 17 07/22/22 04:00 BP 154/75 07/22/22 04:00 Pulse Ox 97 07/22/22 04:00 FiO2 21 07/21/22 20:05 Intake & Output 07/21/22 07/22/22 07/22/22 18:59 06:59 18:59 Intake Total 817.052 Output Total 200 300 Balance 617.052 -300 Weight 64.4 kg 64.4 kg Intake: IV 700 Intake, IV Titration 117.052 Amount Heparin Sod,Pork in 0.45% 117.052 NaCl 25,000 unit In 0.45 % NaCl 1 250ml.bag @ 12 UNITS/KG/HR 7.62 mls/hr IV .Q24H [facility] Rx#: [id number] Output: Urine 200 300 Other: Voiding Method Toilet Toilet - Labs CBC & Chem 7: 07/22/22 07:06 07/22/22 07:06 Labs: Abnormal Lab Results - Last 24 Hours (Table) 07/21/22 07/22/22 07/22/22 Range/Units 20:31 06:06 07:06 RBC 3.61 L (3.80-5.40) m/uL Hgb 11.3 L (11.4-16.0) gm/dL Sodium (137-145) mmol/L Glucose (74-99) mg/dL POC Glucose (mg/dL) 161 H 135 H (70-110) mg/dL Calcium (8.4-10.2) mg/dL 07/22/22 07/22/22 Range/Units 07:06 11:35 RBC (3.80-5.40) m/uL Hgb (11.4-16.0) gm/dL Sodium 136 L (137-145) mmol/L Glucose 130 H (74-99) mg/dL POC Glucose (mg/dL) 112 H (70-110) mg/dL Calcium 8.1 L (8.4-10.2) mg/dL
[2022-07-22 16:21] LABS: Glucose,Whole Blood 122 mg/dL (70-110)
[2022-07-22 20:28] LABS: Glucose,Whole Blood 202 mg/dL (70-110)
[2022-07-22] MEDS: INSULIN DETEMIR (LEVEMIR) 100 UNIT/ML SYR SQ SCH (21:08)
--- NOTE | 2022-07-23 02:59 | P.PN ---
Subjective Progress Note Date: 07/22/22 86-year-old female came in with complaints of chest pressure like sensation. She doesn't have any previous history of coronary artery disease patient started having symptoms of shortness of breath about couple days ago. Patient pain is better patient pain is nonradiating no not associated with diaphoresis. Patient does have a syncopal event family history of coronary artery disease. A since troponins of 4.7, 4.2 and 3.9 07/22/2022 Patient is seen and evaluated and follow-up this morning with cardiology following patient is post left heart catheterization with bilateral coronary angiography IVUS to the RCA with PCI to the ostial RCA and is maintained on telemetry monitoring. Please refer to cardiology catheterization report for further details. Cardiology recommending aggressive risk factor modifications along with dual antiplatelets of aspirin and Plavix for at least 12 months and may consider staging PCI of the LAD. Patient is currently afebrile and vital signs are stable with a heart rate of 81. Patient is 97% on room air. Cardiology will like to continue to monitor on telemetry monitoring for an additional 24 hours possible discharge in a.m. Review of systems: Constitutional: No reports of fatigue, fever, or chills Cardiovascular: No reports of chest pain or palpitations Respiratory: No reports of shortness of breath or cough GI: No reports of nausea, vomiting, or diarrhea : No reports of dysuria or retention Neurovascular: No reports of weakness or numbness, reports generalized pain All medications have been reviewed PHYSICAL EXAMINATION: GENERAL: The patient is alert and oriented x3, not in any acute distress. Well developed, well nourished. HEENT: Pupils are round and equally reacting to light. EOMI. No scleral icterus. No conjunctival pallor. Normocephalic, atraumatic. No pharyngeal erythema. No thyromegaly. CARDIOVASCULAR: S1 and S2 present. No murmurs, rubs, or gallops. PULMONARY: Chest is clear to auscultation, no wheezing or crackles. ABDOMEN: Soft, nontender, nondistended, normoactive bowel sounds. No palpable organomegaly. MUSCULOSKELETAL: No joint swelling or deformity. EXTREMITIES: No cyanosis, clubbing, or pedal edema. NEUROLOGICAL: Gross neurological examination did not reveal any focal deficits. SKIN: No rashes. Assessment: -possible non-ST elevation myocardial infarction: Patient may have had ME about couple days ago. Patient was on IV heparin with cardiology following underwent PCI as mentioned above -Shortness of breath secondary to ME. Improved -Type 2 diabetes mellitus patient's hemoglobin A1c 6.8 well-controlled, will adjust insulins for now as patient was nothing by mouth and recommend monitoring with Accu-Cheks before meals and at bedtime -Hyperlipidemia -Hypertension -DVT prophylaxis: She is on IV heparin -Full code Plan: Patient underwent PCI stenting with cardiology following recommend monitoring overnight and continued on telemetry monitoring Continue to maximize medical management Cardiology recommending outpatient follow-up Recommend continue with dual antiplatelet of aspirin and Plavix Possible discharge in 24 hours The impression and plan of care has been dictated by Lyndsey Wilson, Nurse Practitioner as directed. Dr. Rusty MD I have performed a history and examination and MDM of this patient, discussed the same with the dictator, and agree with the dictator's assessment and plan as written ,documented as a scribe. Based on total visit time, I have performed more than 50% of the visit. Objective - Vital Signs Vital signs: Vital Signs Temp 96.6 F L 07/22/22 04:00 Pulse 81 07/22/22 04:00 Resp 17 07/22/22 04:00 BP 154/75 07/22/22 04:00 Pulse Ox 97 07/22/22 04:00 FiO2 21 07/21/22 20:05 Intake & Output 07/21/22 07/22/22 07/22/22 18:59 06:59 18:59 Intake Total 817.052 Output Total 200 Balance 617.052 Weight 64.4 kg Intake: IV 700 Intake, IV Titration 117.052 Amount Heparin Sod,Pork in 0.45% 117.052 NaCl 25,000 unit In 0.45 % NaCl 1 250ml.bag @ 12 UNITS/KG/HR 7.62 mls/hr IV .Q24H [facility] Rx#: [id number] Output: Urine 200 Other: Voiding Method Toilet Toilet - Labs CBC & Chem 7: 07/22/22 07:06 07/22/22 07:06 Labs: Abnormal Lab Results - Last 24 Hours (Table) 07/21/22 07/22/22 07/22/22 Range/Units 20:31 06:06 07:06 RBC 3.61 L (3.80-5.40) m/uL Hgb 11.3 L (11.4-16.0) gm/dL Sodium (137-145) mmol/L Glucose (74-99) mg/dL POC Glucose (mg/dL) 161 H 135 H (70-110) mg/dL Calcium (8.4-10.2) mg/dL 07/22/22 Range/Units 07:06 RBC (3.80-5.40) m/uL Hgb (11.4-16.0) gm/dL Sodium 136 L (137-145) mmol/L Glucose 130 H (74-99) mg/dL POC Glucose (mg/dL) (70-110) mg/dL Calcium 8.1 L (8.4-10.2) mg/dL
[2022-07-23 06:17] LABS: Glucose,Whole Blood 140 mg/dL (70-110)
[2022-07-23] MEDS: NITROGLYCERIN OINT 1 INCH/GM PACKET TOPICAL SCH ×3 (06:44→13:02)
[2022-07-23] MEDS: hydrALAZINE HCL 25 MG TAB PO SCH (06:48)
[2022-07-23] MEDS: INSULIN ASPART (NovoLOG) 100 UNIT/ML VIAL SQ SCH ×2 (06:49→13:04)
[2022-07-23] MEDS: PANTOPRAZOLE 40 MG TABLET PO SCH (06:51)
[2022-07-23 09:06] VITALS: RESP 18; TEMP 96.6
[2022-07-23] MEDS: ATORVASTATIN 20 MG TAB PO SCH (09:06)
[2022-07-23] MEDS: CLOPIDOGREL 75 MG TAB PO SCH (09:06)
[2022-07-23] MEDS: ASPIRIN 81 MG PO SCH (09:06)
[2022-07-23] MEDS: METOPROLOL SUCCINATE (ER) 25 MG TAB.ER.24H PO SCH (09:06)
[2022-07-23 09:53] LABS: Glucose,Whole Blood 269 mg/dL (70-110)
[2022-07-23 12:02] LABS: Glucose,Whole Blood 291 mg/dL (70-110)
--- NOTE | 2022-07-23 13:27 | P.PN ---
Subjective HISTORY OF PRESENTING ILLNESS This is a pleasant 86-year-old with past medical history significant for diabetes mellitus type 2, hyperlipidemia, strong family history of CAD. She does not follow in the office with anyone. She started to develop chest pain and feeling of an elephant on her chest 07/20 or the prior day and therefore presented to emergency department. Troponins increased up to 5. EKG shows sinus rhythm with diffuse ST depressions. She has never had heart catheterization previously. Normally is fairly active [place] 07/[place] Patient underwent heart catheterization yesterday which showed 99% RCA stenosis as well as a mid LAD 80% stenosis. She underwent successful PCI of the ostial RCA. She has been having some groin pain which was present even before her heart catheterization. No hematoma. Echocardiogram pending. 07/23 Patient seen and examined. Patient denies any chest pain or pressure. Able walk to the bathroom without difficulty. No further groin pain. PHYSICAL EXAMINATION Vital signs reviewed. CONSTITUTIONAL: No apparent distress. HEENT: Head is normocephalic. Pupils are equal, round. Sclerae anicteric. Mucous membranes of the mouth are moist. No JVD. No carotid bruit. CHEST EXAMINATION: Lungs are clear to auscultation. No chest wall tenderness is noted on palpation or with deep breathing. HEART EXAMINATION: Regular rate and rhythm. S1, S2 heard. No murmurs, gallops or rub. ABDOMEN: Soft, nontender. Positive bowel sounds. EXTREMITIES: 2+ peripheral pulses, no lower extremity edema and no calf tenderness. NEUROLOGIC EXAMINATION: Patient is awake, alert and oriented x3. ASSESSMENT 1. Non-STEMI s/p PCI RCA 07/21 2. Hypertension 3. Family history CAD 4. Diabetes mellitus type 2 5. 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 Echocardiogram pending however patient stable for discharge home from cardiology standpoint. Objective - Vital Signs Vital signs: Vital Signs Temp 96.6 F L 07/23/22 08:00 Pulse 89 07/23/22 08:00 Resp 18 07/23/22 08:00 BP 135/66 07/23/22 08:00 Pulse Ox 97 07/23/22 08:00 FiO2 21 07/21/22 20:05 Intake & Output 07/22/22 07/23/2207/23/22 18:59 06:59 18:59 Intake Total 120 360 Output Total 300 500 Balance -180 -500 360 Weight 64.4 kg Intake: Oral 120 360 Output: Urine 300 500 Other: Voiding Method Toilet - Labs CBC & Chem 7: 07/22/22 07:06 07/22/22 07:06 Labs: Abnormal Lab Results - Last 24 Hours (Table) 07/22/22 07/22/22 07/23/22 Range/Units 16:20 20:26 06:14 POC Glucose (mg/dL) 122 H 202 H 140 H (70-110) mg/dL 07/23/22 07/23/22 Range/Units 09:50 12:00 POC Glucose (mg/dL) 269 H 291 H (70-110) mg/dL
--- NOTE | 2022-07-23 13:28 | CA ---
Transthoracic Echo Report Name: Mesha Chahal Age: 86 Gender: F : 1935 Exam Date: 07/23/2022 11:43 Exam Location: [place] Echo Ht (in): 62 Wt (lb): 141 Ordering Physician: Jesse Westbrook DO ([email or web address]) Attending/Referring Phys: Manager Creative Sweta Samaniego RDCS Procedure CPT: Indications: re: LV function, NSTEMI Cardiac Hx: Technical Quality: Contrast 1: Total Dose (mL): Contrast 2: Total Dose (mL): MEASUREMENTS (Male / Female) Normal Values 2D ECHO LV Diastolic Diameter PLAX 4.7 cm 4.2 - 5.9 / 3.9 - 5.3 cm LV Systolic Diameter PLAX 3.5 cm IVS Diastolic Thickness 1.1 cm 0.6 - 1.0 / 0.6 - 0.9 cm LVPW Diastolic Thickness 1.4 cm 0.6 - 1.0 / 0.6 - 0.9 cm LV Relative Wall Thickness 0.5 RV Internal Dim ED PLAX 3.0 cm LA Systolic Diameter LX 3.8 cm 3.0 - 4.0 / 2.7 - 3.8 cm LA Volume 55.0 cm??? 18 - 58 / 22 - 52 cm??? M-MODE Aortic Root Diameter MM 2.7 cm LA Systolic Diameter MM 4.7 cm LA Ao Ratio MM 1.8 MV E Point Septal Separation 1.4 cm AV Cusp Separation MM 2.0 cm DOPPLER MV Area PHT 2.3 cm??? Mitral E Point Velocity 51.8 cm/s Mitral A Point Velocity 106.0 cm/s Mitral E to A Ratio 0.5 MV Deceleration Time 332.5 ms MV E' Velocity 3.1 cm/s Mitral E to MV E' Ratio 16.6 TR Peak Velocity 98.6 cm/s TR Peak Gradient 3.9 mmHg Right Ventricular Systolic Press 8.9 mmHg FINDINGS Left Ventricle Mildly increased septal wall thickness. Left ventricular ejection fraction is estimated at 40 %. Mid, basal inferior hypokinesis. Right Ventricle Normal right ventricular size and function. Right ventricular systolic pressure within normal limits. Right Atrium Normal right atrial size. Left Atrium Mildly increased left atrial volume. Mitral Valve Structurally normal mitral valve. Mild to moderate mitral regurgitation. Aortic Valve Trileaflet aortic valve. Aortic valve sclerosis. Tricuspid Valve Structurally normal tricuspid valve. Mild tricuspid regurgitation. Pulmonic Valve Structurally normal pulmonic valve. Pericardium Normal pericardium. Aorta Normal size aortic root and proximal ascending aorta. CONCLUSIONS Impaired LV function with EF around 40% [id number] mitral regurgitation Previewed by: Dr. Peña Colon MD (Electronically Signed) Final Date: 23 July 2022 13:27
[2022-07-23 14:13] VITALS: BP 137/65; PULSE 86
--- NOTE | 2022-07-25 20:09 | P.DS ---
Providers Date of admission: 07/20/22 16:37 Expected date of discharge: 07/23/22 Attending physician: Nancy Ojeda Consults: 07/20/22 16:37 Consult Physician Urgent Consulting Provider: Jesse Westbrook Consult Reason/Comments: nstemi Do you want consulting provider notified?: Yes 07/21/22 19:01 Consult Physician Routine Consulting Provider: [facility] Consult Reason/Comments: Post Interventional Patient Do you want consulting provider notified?: Already Contacted Primary care physician: Pierce Melendez [facility] Course: Final diagnosis -possible non-ST elevation myocardial infarction: Patient may have had W[place] about couple days ago. Status post cardiac catheterization with PCI stenting to the RCA -Shortness of breath secondary to [place]. Improved -Type 2 diabetes mellitus patient's hemoglobin A1c 6.8 well-controlled -Hyperlipidemia -Hypertension -DVT prophylaxis -Full code Discharge disposition Patient is being discharged in a stable condition with guarded prognosis to home. Patient will follow-up with Dr. Melendez in the outpatient setting upon discharge. Patient is to also follow-up with cardiology as scheduled. Total time taken is greater than 35 minutes. Hospital course This is a 86-year-old female who was recently admitted with chest pain and worsening shortness of breath most likely an NSTEMI and being followed closely by cardiology underwent cardiac catheterization with stenting and cardiology clearing the patient for discharge recommended maximizing medical management and close outpatient follow-up with possible further stenting in the future. Patient is to continue on aspirin and Plavix dual antiplatelet indefinitely. Patient is a diabetic well controlled at home and recommend continue current regimen. Patient follow-up with primary care provider upon discharge. Patient reports to feeling well and would like to go home. Currently no reports of chest pain, shortness of breath, or palpitations. Patient is afebrile. No reports of nausea or vomiting and patient is tolerating diet. Patient will be discharged home today. Physical exam: Gen: This is a 86-year-old female who is awake, alert and oriented 3, well- developed, well-nourished HEENT: Head is atraumatic, normocephalic. Pupils equal, round. Sclerae is anicteric. NECK: Supple. No JVD. No lymphadenopathy. No thyromegaly. LUNGS: Clear to auscultation. No wheezes or rhonchi. No intercostal retractions. HEART: Regular rate and rhythm. No murmur. ABDOMEN: Soft. Bowel sounds are present. No masses. No tenderness. EXTREMITIES: No pedal edema. No calf tenderness. NEUROLOGICAL: Patient is awake, alert and oriented x3. Cranial nerves 2 through 12 are grossly intact. Please refer to medication reconciliation sheet for a list of medications. The impression and plan of care has been dictated by Lyndsey Wilson, Nurse Practitioner as directed. Dr. Rusty MD I have performed a history and examination and MDM of this patient, discussed the same with the dictator, and agree with the dictator's assessment and plan as written ,documented as a scribe. Based on total visit time, I have performed more than 50% of the visit. Patient Condition at Discharge: Stable Plan - Discharge Summary Discharge Rx Participant: Yes New Discharge Prescriptions: New Clopidogrel [Plavix] 75 mg PO DAILY 30 Days #30 tab Aspirin 81 mg PO DAILY 30 Days #30 tab Nitroglycerin Sl Tabs [Nitrostat] 0.4 mg SUBLINGUAL Q5M PRN #30 tab PRN Reason: Chest Pain Continue Pantoprazole [Protonix] 40 mg PO DAILY Metoprolol Succinate [Metoprolol Succinate ER] 25 mg PO DAILY Ibuprofen [Motrin] 800 mg PO Q6H PRN PRN Reason: Pain Or Fever > 100.5 Ergocalciferol (Vitamin D2) [Drisdol (50,000 Iu)] 1,250 mcg PO STEPHENSON Rosuvastatin [Crestor] 10 mg PO DAILY hydrALAZINE HCL [Apresoline] 25 mg PO BID-W/MEALS Insulin Lispro [humaLOG Kwikpen] See Protocol SQ TID-W/MEALS Insulin Glargine,Hum.rec.anlog [Lantus Solostar Pen] 40 units SQ HS Discharge Medication List Ergocalciferol (Vitamin D2) [Drisdol (50,000 Iu)] 1,250 mcg PO STEPHENSON 07/20/22 [History] Ibuprofen [Motrin] 800 mg PO Q6H PRN 07/20/22 [History] Insulin Glargine,Hum.rec.anlog [Lantus Solostar Pen] 40 units SQ HS 07/20/22 [History] Insulin Lispro [humaLOG Kwikpen] See Protocol SQ TID-W/MEALS 07/20/22 [History] Metoprolol Succinate [Metoprolol Succinate ER] 25 mg PO DAILY 07/20/22 [History] Pantoprazole [Protonix] 40 mg PO DAILY 07/20/22 [History] Rosuvastatin [Crestor] 10 mg PO DAILY 07/20/22 [History] hydrALAZINE HCL [Apresoline] 25 mg PO BID-W/MEALS 07/20/22 [History] Aspirin 81 mg PO DAILY 30 Days #30 tab 07/23/22 [Rx] Clopidogrel [Plavix] 75 mg PO DAILY 30 Days #30 tab 07/23/22 [Rx] Nitroglycerin Sl Tabs [Nitrostat] 0.4 mg SUBLINGUAL Q5M PRN #30 tab 07/23/22 [Rx] Follow up Appointment(s)/Referral(s): Peña Colon MD [STAFF PHYSICIAN] - 1 Week (Office will call to set up a follow- up appointment) Pierce Melendez MD [Primary Care Provider] - 1-2 days (Please call to set up a follow-up appointment, office closed ) Patient Instructions/Handouts: *[facility] - After Heart Catheterization - Parliamentary Librarian Instructions, Heart Attack (DC) Activity/Diet/Wound Care/Special Instructions: Activity Limited until follow-up Follow-up with primary care provider on discharge Follow-up with cardiology outpatient in 1-2 weeks Continue taking medications as prescribed Continue to monitor blood sugar and continue with consistent carb heart healthy diet Discharge Disposition: HOME SELF-CARE
== END 2022-07-23 16:41 | disposition home or self-care (01) | DRG 247 ==
LOC: EC 14:51 → 3SCARD 16:37
PROVIDERS: ADMIT Internal Medicine; ATTEND Internal Medicine
PROC: B240ZZ3 Ultrasonography of Single Coronary Artery, Intravascular (ICD-10-PCS; 2022-07-21)
PROC: 027034Z Dilation of Coronary Artery, One Artery with Drug-eluting Intraluminal Device, Percutaneous Approach (ICD-10-PCS; principal; 2022-07-21 11:55)
PROC: 4A023N7 Measurement of Cardiac Sampling and Pressure, Left Heart, Percutaneous Approach (ICD-10-PCS; 2022-07-21 11:55)
PROC: B2111ZZ Fluoroscopy of Multiple Coronary Arteries using Low Osmolar Contrast (ICD-10-PCS; 2022-07-21 11:55)
DX: I21.4 Non-ST elevation (NSTEMI) myocardial infarction (principal); E11.9 Type 2 diabetes mellitus without complications; E78.5 Hyperlipidemia, unspecified; I25.119 Atherosclerotic heart disease of native coronary artery with unspecified angina pectoris; I08.3 Combined rheumatic disorders of mitral, aortic and tricuspid valves; I10 Essential (primary) hypertension; Z82.49 Family history of ischemic heart disease and other diseases of the circulatory system; Z79.899 Other long term (current) drug therapy; Z79.4 Long term (current) use of insulin
CPT/HCPCS: 36415; 71046; 80048; 80053; 80061; 83036; 83735; 84484; 85025; 85027; 85610; 85730; 92978; 93005; 93306; 93458; 94760; 96374; 99291

== ENCOUNTER → 2022-08-08 | Outpatient (CLI) | payer MEDICARE ==
--- NOTE | 2022-08-08 14:12 | CT ---
EXAMINATION TYPE: CT chest w con DATE OF EXAM: 08/08/2022 COMPARISON: None HISTORY: abnormal cxr CT DLP: 255.6 mGycm Automated exposure control for dose reduction was used. TECHNIQUE: CT scan of the chest is performed with IV Contrast, patient injected with 70cc mL of Isovue 300. MIP Images are created on CT scanner and reviewed. 3D reconstructed images are created on an independent workstation and reviewed. FINDINGS: The lungs are clear of consolidative/airspace density or abnormal interstitial density. There is a 10 mm nodule associated with the major fissure on the left. There are a few scattered less than 6 mm subpleural parenchymal nodules on the right. There is no pleural effusion or pneumothorax. Great vessels the chest are normal is no mediastinal, hilar or axillary adenopathy. There is a large hiatal hernia. Scanning the upper abdomen reveals cholecystectomy. The osseous structures are intact. IMPRESSION: 1. Right paratracheal mass seen on prior chest x-ray appears to be secondary to tortuous normal vascu lature. 2. Pulmonary nodules as described above. Lung RADS category 2, likely benign. Follow-up CT in 6 month s is recommended to confirm stability. 3. No acute cardiopulmonary disease.
== END | disposition home or self-care (01) ==
LOC: RADCTMAIN 10:45
PROVIDERS: ATTEND Internal Medicine Geriatric Medicine
DX: J39.8 Other specified diseases of upper respiratory tract (principal); R91.8 Other nonspecific abnormal finding of lung field
CPT/HCPCS: 82565; 84520; 71260; 36415; Q9967

== ENCOUNTER → 2024-03-30 | Outpatient (CLI) | payer MEDICARE ==
[2024-03-30 10:51] LABS: Partial Thromboplastin Time 27.7 sec (22.0-30.0); Prothrombin Time 10.9 sec (10.0-12.5)
[2024-03-30 15:13] LABS: HCT 38.2 % (37.2-46.3); HGB 12.4 g/dL (12.0-15.0); MCH 31.8 pg (27.0-32.0); MCHC 32.5 g/dL (32.0-37.0); MCV 97.9 FL (80.0-97.0); Mean Platelet Volume 11.9 FL (9.5-12.2); NRBC Per 100 WBC 0 X 10*3/uL (0.00-0.01); Platelet Count 261 X 10*3/uL (140-440); RDW 14.1 % (11.5-14.5)
[2024-03-30 16:02] LABS: ALT 13 U/L (8-44); AST 20 U/L (13-35); Albumin 3.9 g/dL (3.8-4.9); Alkaline Phosphatase 71 U/L (41-126); BUN/Creat Ratio 19.22 Ratio (12.00-20.00); Blood Urea Nitrogen 17.3 mg/dL (9.0-27.0); Calcium 9.2 mg/dL (8.7-10.3); Carbon Dioxide 23.4 mmol/L (21.6-31.8); Chloride 101 mmol/L (96-109); Globulin 2.3 g/dL (1.6-3.3); Glucose 225 mg/dL (70-110); Potassium 4.6 mmol/L (3.5-5.5); Sodium 137 mmol/L (135-145); Total Bilirubin 0.3 mg/dL (0.3-1.2); Total Protein 6.2 g/dL (6.2-8.2)
== END | disposition home or self-care (01) ==
LOC: LABWHC1 09:43
PROVIDERS: ATTEND Orthopaedic Surgery
DX: Z01.812 Encounter for preprocedural laboratory examination (principal); E11.9 Type 2 diabetes mellitus without complications; Z22.322 Carrier or suspected carrier of Methicillin resistant Staphylococcus aureus
CPT/HCPCS: 36415; 80053; 83036; 85027; 85610; 85730; 86850; 86900; 86901; 87070

== ENCOUNTER → 2024-05-27 | Outpatient (CLI) | payer MEDICARE ==
[2024-05-27 14:45] LABS: Prothrombin Time 11.2 sec (10.0-12.5)
[2024-05-27 18:31] LABS: HCT 38.9 % (37.2-46.3); HGB 12.5 g/dL (12.0-15.0); MCHC 32.1 g/dL (32.0-37.0); MCV 99.5 FL (80.0-97.0); Mean Platelet Volume 10.8 FL (9.5-12.2); NRBC Per 100 WBC 0 X 10*3/uL (0.00-0.01); Platelet Count 284 X 10*3/uL (140-440); RBC 3.91 X 10*6/uL (4.10-5.20); RDW 13.6 % (11.5-14.5); WBC 7.44 X 10*3/uL (4.50-10.00)
[2024-05-27 18:45] LABS: ALT 11 U/L (8-44); AST 20 U/L (13-35); Albumin 4.2 g/dL (3.8-4.9); Albumin/Globulin Ratio 1.56 Ratio (1.60-3.17); Alkaline Phosphatase 54 U/L (41-126); BUN/Creat Ratio 31.67 Ratio (12.00-20.00); Blood Urea Nitrogen 28.5 mg/dL (9.0-27.0); Calcium 9.3 mg/dL (8.7-10.3); Carbon Dioxide 25.9 mmol/L (21.6-31.8); Chloride 104 mmol/L (96-109); Globulin 2.7 g/dL (1.6-3.3); Glucose 144 mg/dL (70-110); Potassium 5.3 mmol/L (3.5-5.5); Sodium 139 mmol/L (135-145); Total Bilirubin 0.3 mg/dL (0.3-1.2); Total Protein 6.9 g/dL (6.2-8.2)
== END | disposition home or self-care (01) ==
LOC: LABPAT 13:15
PROVIDERS: ATTEND Orthopaedic Surgery
CPT/HCPCS: 80053; 83036; 85027; 85610; 85730; 87070; 93005

== ENCOUNTER 2024-06-01 11:13 | Inpatient (IN) | payer MEDICARE ==
[2024-05-27 15:41] VITALS: BMI 23.0
[~2024-06-01 11:13] MED LIST: HYDROmorphone 0.5 MG/0.5 ML SYRINGE IVP PRN; LIDOCAINE 1% (10MG/ML) FOR IV START INTRADERMA PRN; ONDANSETRON 4 MG/2 ML VIAL IVP PRN; ROPIVACAINE/EPI/CLONIDINE/KET 50 ML SYRINGE MISCELLANE PRN; TRANEXAMIC 1,000 MG/100ML-NACL 1,000 MG in SALINE 1 100ML.BAG IV PRN; TRANEXAMIC 1,000 MG/100ML-NACL 1,000 MG in SALINE 1 100ML.BAG IVPB PRN; fentaNYL (PF) 50 MCG/ML 2 ML AMP IVP PRN
[2024-06-01] MEDS: IV FLUID CONTINUATION 1,000 ML IV ONE (11:39)
[2024-06-01 12:09] LABS: Glucose,Whole Blood 180 mg/dL (70-110)
[2024-06-01] MEDS: MIDAZOLAM 2 MG/2 ML VIAL IV PRN (12:19)
[2024-06-01] MEDS: LACTATED RINGERS 1,000 ML IV SCH (12:28)
--- NOTE | 2024-06-01 12:28 | P.ANPRN ---
Procedure Note - Anesthesia - Nerve Block Performed Right Jose Single Time Out Performed: Yes Date of Procedure: 06/01/24 Procedure Start Time: 12:18 Procedure Stop Time: 12:23 Location of Patient: PreOp Indication: Acute Post-Operative Pain, Analgesia, Requested by Surgeon Sedation Type: Sedate with meaningful contact maintained Preparation: Sterile Prep Position: Supine Catheter: None Needle Types: Pajunk Needle Gauge: 21 Ultrasound used to visualize needle placement: Yes Ultrasound used to observe medication spread: Yes Injectate: 0.5% Ropivacaine (see comment for volume) (Ropiv 20ml+Decadron 4mg.) Blood Aspirated: No Pain Paresthesia on Injection Noted: No Resistance on Injection: Normal Image Stored and Saved: Yes Events: Uneventful and Well Tolerated
[2024-06-01] MEDS: oxyCODONE ER 10 MG TAB.ER.12H PO PRN (12:29)
[2024-06-01] MEDS: ACETAMINOPHEN TAB 500 MG TAB PO PRN (12:29)
[2024-06-01] MEDS: DOCUSATE 100 MG CAP PO PRN (12:29)
[2024-06-01] MEDS: DEXAMETHASONE SOD PHOSPHATE 10 MG/ML 1 ML VIAL IV PRN (12:31)
[2024-06-01] MEDS: FAMOTIDINE 20 MG/2 ML VIAL IVP PRN (12:31)
[2024-06-01] MEDS: ONDANSETRON 4 MG/2 ML VIAL IVP ONE (12:31)
[2024-06-01] MEDS: KETOROLAC 15 MG/ML 1 ML VIAL IVP PRN (12:31)
[2024-06-01] MEDS ORDERED: NEOSTIGMINE 1 MG/ML 10 ML VIAL ONE (13:02)
[2024-06-01] MEDS ORDERED: ROCURONIUM 10 MG/ML (5 ML VIAL) IV ONE (13:02)
[2024-06-01] MEDS ORDERED: SUCCINYLCHOLINE CHLORIDE 200 MG/10 ML VIAL IV ONE (13:02)
[2024-06-01] MEDS ORDERED: ePHEDrine 50 MG/ML 1 ML VIAL ONE (13:02)
[2024-06-01] MEDS ORDERED: DEXAMETHASONE SOD PHOSPHATE 4 MG/ML 1 ML VIAL ONE (13:02)
[2024-06-01] MEDS ORDERED: ROPIVACAINE 5 MG/ML 30 ML VIAL ONE (13:02)
[2024-06-01] MEDS ORDERED: LIDOCAINE 1% INJ 10MG/ML (20 ML MDV) ONE (13:02)
[2024-06-01] MEDS ORDERED: TRANEXAMIC 1,000 MG/100ML-NACL PREMIX BAG ONE (13:02)
[2024-06-01] MEDS ORDERED: PROPOFOL 10 MG/ML 20 ML VIAL IV ONE (13:02)
[2024-06-01] MEDS ORDERED: fentaNYL (PF) 50 MCG/ML 2 ML AMP ONE (13:02)
[2024-06-01] MEDS ORDERED: GLYCOPYRROLATE 0.2 MG/ML 2 ML VIAL ONE (13:02)
[2024-06-01] MEDS ORDERED: WATER FOR INJECTION, STERILE 10 ML VIAL IV ONE (13:02)
[2024-06-01] MEDS: VANCOMYCIN 1,000 MG VIAL MISCELLANE ONE ×2 (13:49)
[2024-06-01] MEDS: EPINEPHrine 2 MG in SODIUM CHLORIDE 0.9% 200 ML IV ONE (14:02)
[2024-06-01] MEDS: LACTATED RINGERS 1,000 ML IV ONE (14:40)
--- NOTE | 2024-06-01 15:03 | P.OP ---
Date of Procedure: 06/01/24 Preoperative Diagnosis: 1. Severe right hip osteoarthritis 2. Prior left intertrochanteric hip fracture 3. Coronary artery disease 4. DM2 (preoperative Hgb A1C 7.2) Postoperative Diagnosis: Same Procedure(s) Performed: Right Direct Anterior Total Hip Arthroplasty Implants: 1. Altura Trident II Acetabular Cup, Size #46 2. Altura Accolade C Size # 4 Femoral Stem, Standard Offset 3. Dual Mobility OD 36 mm, ID 22.2 mm, +0 mm neck Anesthesia: DARYL, regional Surgeon: Tavares Dillon Editorial Assistant #1: Tobi Urena Estimated Blood Loss (ml): 300 IV fluids (ml): 800 Pathology: none sent Condition: stable Disposition: PACU Indications for Procedure: I had a long discussion with the patient in the office on the potential risks and complications of an elective total hip replacement through a direct anterior approach. Risks discussed include, but are certainly not limited to, risks from anesthesia, superficial infection requiring local wound care or antibiotics, deep brandy-prosthetic joint infection and the treatment required to eradicate infection, intraoperative fracture, postoperative periprosthetic fracture, damage to local blood vessels or nerves particularly the lateral femoral cutaneous nerve, delayed wound healing requiring local wound care or possibly surgical debridement, hip dislocation, leg length discrepancy, soft tissue irritation around the total hip implant such as iliopsoas tendinitis or trochanteric bursitis, wear and osteolysis from the implants, squeaking or audible noises, groin pain, thigh pain, heterotopic ossification, stiffness, aseptic loosening of the implants, dissatisfaction with surgical outcome, need for revision surgery, DVT, PE, swelling of the operative extremity, acute coronary event, stroke, failure to thrive, and possibly loss of life or limb. The patient understands that while these are the most common complications after an elective hip replacement there are certainly other less common complications possible. They were given ample time to ask questions regarding the potential complications of a hip replacement. Following our discussion the patient provided their verbal and written consent to go forward with an elective total hip replacement. Operative Findings: Severe right hip osteoarthritis and severe osteopenia. Description of Procedure: The patient was identified in the preoperative holding area and the correct hip was marked with my initials. I reviewed the procedure and consent with the patient. All of their questions were answered. The patient was then brought b ack into the operating room by anesthesia. While on the [facility] anesthesia was administered by the anesthesia team. Preoperative antibiotics and tranexamic acid were also given. After the patient was under anesthesia I examined their ankles to determine their preoperative leg length discrepancy. The skin over the anterior aspect of the hip was shaved to remove hair over the site of planned incision. Both feet and ankles were padded with webril and boots for the Gibbon were applied. The patient was then carefully transferred onto the Gibbon table. A perineal post was immediately placed. The arms were placed on arm holders and were well-padded. Both boots were secured to the spars on the Gibbon table. The patient was positioned so that the pelvis was centered over the post. Nonsterile drapes were applied. A timeout was performed identifying the correct patient, operative extremity, and procedure. At this point fluoroscopy was brought in to take preoperative images of the pelvis and operative hip. Using the standing AP pelvis from the office as a template, a comparable image was obtained with fluoroscopy. A metallic bar was used to create a bi-ischial line for use as a reference to leg length adjustments during the procedure. Global offset was also measured on both the operative and nonoperative leg. Fluoroscopy was then brought out and a pre-scrub using a chlorhexidine scrub brush was performed. The operative limb was then prepped and draped in the standard sterile fashion. An anterior longitudinal incision was made lateral and distal to the ASIS. The skin and subcutaneous tissues were incised sharply. The underlying tensor fascia was identified and incised in its midportion. The fascia was dissected free from the underlying muscle and the muscle belly was retracted. A blunt tipped cobra retractor was placed over the superior neck under the muscle fibers of the gluteus minimus. The deep enveloping fascia of the tensor was incised. The anterior leash of vessels were then identified and cauterized. The fascia between the rectus and the capsule was then incised and the pre-capsular fat was excised. A second Cobra was placed inferior to the neck. The interval between the rectus and iliocapsularis and the hip capsule was developed and a retractor was placed carefully over the anterior rim of the acetabulum. A T-shaped anterior capsulotomy was performed. The superior capsular leaflet was left in place in the inferior capsular flap was excised. The Cobra retractors were placed intracapsularly. We then made a femoral neck osteotomy according to preoperative and intraoperative templating and confirmed the level of the osteotomy using fluoroscopic imaging. The femoral head was removed, passed off to the back table, and sized. The superior capsular flap was excised. Retractors were placed circumferentially exposing the acetabulum. We then circumferentially debrided the acetabulum free of labrum and osteophytes. The pulvinar was removed to fully visualize the cotyloid fossa. We then sequentially reamed to achieve peripheral fit and excellent bleeding subchondral bone. The socket was thoroughly irrigated. The acetabular component was impacted into the appropriate position using fluoroscopy to guide version, inclination, and depth of insertion taking care to have a comparable image of the AP pelvis to the standing image taken in the office. An excellent press-fit was achieved and final position was confirmed using fluoroscopy. The press fit was augmented with bony cancellus dome screws. The liner was then impacted into the socket. Attention was then turned to the femur. The remnant dorsal lateral capsule was excised. The short external rotators were visible and protected. A bone hook was used to confirm appropriate translation of the trochanter away from the acetabulum. The leg was then extended and adducted and the bone hook was used to elevate the femur for broaching. On inspection of the patient's proximal femur, they appeared to have poor bone quality so I elected to proceed with cemented fixation of the femoral component. A box osteotome and blunt tipped canal sound was then utilized to gain access to the femoral canal. We then sequentially broached the femur in appropriate anteversion until torsional stability was achieved and the implant was felt to have reached the appropriate size to allow trialing. The neck cut was brought flush to the trial broach with a calcar planar. A trial neck and head were then placed onto the broach and the hip was atraumatically reduced under direct visualization. External rotation to 90 was performed to assess stability. Fluoroscopy was brought in. An AP and lateral fluoroscopic image of the proximal femur was obtained to assess position and fill of the trial broach. An AP of the pelvis was then obtained and matched to the preoperative image taken. A bi-ischial bar was then placed and measurements were taken to assess changes in length and offset. The hip was then carefully dislocated, the proximal femur was exposed, and the trial implants were removed. The proximal femur was then prepared for cementing. The canal was thoroughly irrigated with pulsatile lavage to remove blood and marrow contents. A cement restrictor was placed to a depth just distal to the tip of the final implant. Epinephrine-soaked gauze was then packed into the proximal femur. 2 bags of cement were then mixed using a centrifuge and placed into a cement gun. Anesthesia was notified that cementing was about to commence to make sure the patient was appropriately ventilated and hydrated. Once the cement had reached appropriate consistency, the cement gun was used to fill the canal in a retrograde fashion starting at the restrictor. Cement was then pressurized into the canal with a blue tipped school childcare attendant. The stem was then carefully introduced into the cement taking care to guide the implant into appropriate version. The stem was held in position until the cement had fully set. All extra cement was removed while the cement was hardening. The trunnion was cleansed and the final head was tapped into place to engage the Matias taper. The acetabulum was irrigated and visualized to be free of debris. The hip was carefully reduced. Stability was checked clinically with external rotation to 90 and there was no evidence of instability. Final fluoroscopic images were taken. The wound was then thoroughly irrigated and soaked with a dilute Betadine rinse for 3 minutes. 3 L of sterile saline was irrigated through the wound using pulsatile lavage. Local anesthetic cocktail was injected into the soft tissues around the surgical field. The wound was then closed in layers. A sterile dressing was placed over the surgical incision. The drapes were taken down and the patient was carefully transferred off of the Gibbon table. Following removal of the boots the leg lengths felt acceptable. The patient was then taken to recovery room having tolerated the procedure well. Tobi Urena PA-C was required as a skilled assistant warehouse manager due to the complexity of surgery for patient positioning, draping, exposure, retraction, closure of wound, and application of dressing. PLAN: The patient can weight-bear as tolerated on the operative extremity. 2 doses of postoperative antibiotics. DVT prophylaxis with aspirin 81 mg twice a day based on preoperative risk stratification. Physical therapy for gait training.
[2024-06-01] MEDS ORDERED: HYDROcodone/APAP 10-325MG 1 EACH TAB PO PRN (15:24)
[2024-06-01] MEDS ORDERED: MAGNESIUM HYDROXIDE 2,400 MG/30 ML CUP PO PRN (15:24)
[2024-06-01] MEDS ORDERED: hydrOXYzine pamoate 25 MG CAP PO PRN (15:24)
[2024-06-01] MEDS ORDERED: NALOXONE 0.4 MG/ML 1 ML VIAL IV PRN (15:24)
[2024-06-01] MEDS ORDERED: HYDROmorphone 0.5 MG/0.5 ML SYRINGE IVP PRN ×3 (15:24)
--- NOTE | 2024-06-01 15:32 | XR ---
EXAMINATION TYPE: XR Hip Limited RT, FL guidance operating room DATE OF EXAM: 06/01/2024 Comparison: Radiograph 09/29/2023 Clinical History: 88-year-old female osteoarthrosis, pain, Rt Hip-Ant Findings: Serial intraoperative fluoroscopic imaging demonstrated a stepwise performance of right hip arthropla sty. Initial image shows severe degenerative change of the right hip. Previous antegrade intramedulla ry nail with screw fixation on the left. Osteotomy changes with placement of acetabular cup and 2 fixation screws. A reamer and fitting is per formed followed by placement of the femoral stem and femoral head components. Alignment grossly anato latonya. RT anterior hip with Braaksma 7 images saved 42.2 sec fluoro time 1.1312 DAP LC Impression: Severe right hip OA with stepwise imaging showing right hip total arthroplasty. Alignment grossly deepika tomic. [facility], , 06/01/2024 3:29 PM
[2024-06-01] MEDS: DEXAMETHASONE SOD PHOSPHATE 4 MG/ML 1 ML VIAL IV ONE (16:29)
[2024-06-01] MEDS: SODIUM CHLORIDE 0.9% 1,000 ML IV SCH (16:30)
[2024-06-01 17:19] LABS: Glucose,Whole Blood 258 mg/dL (70-110)
[2024-06-01] MEDS ORDERED: DEXTROSE 50% SYRINGE 50 ML IVP PRN ×2 (17:31)
[2024-06-01] MEDS: INSULIN ASPART (NovoLOG) 100 UNIT/ML VIAL SQ ONE (18:07)
[2024-06-01 21:00] LABS: Glucose,Whole Blood 224 mg/dL (70-110)
[2024-06-01] MEDS: ONDANSETRON 4 MG/2 ML VIAL IVP PRN (21:51)
[2024-06-01] MEDS: ASPIRIN 81 MG PO SCH (21:53)
[2024-06-01] MEDS: DOXYCYCLINE 100 MG CAP PO SCH (21:53)
[2024-06-01] MEDS: SENNOSIDES-DOCUSATE SODIUM 1 EACH TAB PO SCH (21:53)
[2024-06-01] MEDS: INSULIN ASPART (NovoLOG) 100 UNIT/ML VIAL SQ SCH (21:54)
[2024-06-01] MEDS: INSULIN DETEMIR (LEVEMIR) 100 UNIT/ML SYR SQ SCH (21:54)
[2024-06-02 07:01] LABS: Glucose,Whole Blood 154 mg/dL (70-110)
--- NOTE | 2024-06-02 08:03 | P.PN ---
Subjective Progress Note Date: 06/02/24 Principal diagnosis: Status post right total hip arthroplasty for severe right hip osteoarthritis on 06/01/2024 No acute events overnight. Patient had difficulty getting up and was unsteady standing at the edge of the bed. Patient had to be straight cathed last night. Patient states they have no pain while on pain medication. Objective - Vital Signs Vital signs: Vital Signs Temp 97.6 F 06/02/24 01:03 Pulse 61 06/02/24 01:03 Resp 16 06/02/24 01:03 BP 118/51 06/02/24 01:03 Pulse Ox 98 06/02/24 01:03 FiO2 Intake & Output 06/01/24 06/02/24 06/02/24 18:59 06:59 18:59 Intake Total 1301 Output Total 300 0 Balance 1001 0 Weight 58.5 kg Intake: IV 1301 Output: Urine 0 Estimated Blood Loss 300 - Exam A focused exam of the right lower extremity was conducted at bedside this morning. Patient is awake, alert, and able to answer questions. There is a surgical dressing over the right anterior hip, it is clean, dry, intact, without strikethrough. Surrounding the right hip incision there appears to be a fungal infection in the groin. Patient's right thigh has mild swelling. Patient's right femoral nerve function is grossly intact. Patient is able to plantarflex and dorsiflex the right ankles and toes. Patient's foot is well-perfused with capillary fill under 2 seconds. - Labs Labs: Abnormal Lab Results - Last 24 Hours (Table) 06/01/24 06/01/24 06/01/24 Range/Units 12:07 17:17 20:57 POC Glucose (mg/dL) 180 H 258 H 224 H (70-110) mg/dL 06/02/24 Range/Units 06:59 POC Glucose (mg/dL) 154 H (70-110) mg/dL Assessment and Plan Assessment: Postop day #1 status post right total hip arthroplasty for severe right hip osteoarthritis on 06/01/2024 Plan: Leave surgical dressing, reinforce as needed. Ordered nystatin powder for right groin. Weight-bear as tolerated with walker and assistance. Patient will work with physical therapy. Dispo: Plan for rehab. Patient will stay tonight.
[2024-06-02] MEDS: HYDROcodone/APAP 5-325MG 1 EACH TAB PO PRN (08:42)
[2024-06-02] MEDS: NYSTATIN 100,000 UNIT/GM POWD 15 GM TOPICAL SCH (08:42)
[2024-06-02 08:45] LABS: Basophils # (A) 0.02 X 10*3/uL (0.00-0.10); Basophils % (A) 0.2 %; Eosinophils # (A) 0 X 10*3/uL (0.04-0.35); Eosinophils % (A) 0 %; HCT 31.1 % (37.2-46.3); HGB 9.8 g/dL (12.0-15.0); Lymphocytes # (A) 0.73 X 10*3/uL (0.90-5.00); Lymphocytes % (A) 5.6 %; MCH 31.6 pg (27.0-32.0); MCHC 31.5 g/dL (32.0-37.0); MCV 100.3 FL (80.0-97.0); Mean Platelet Volume 11.1 FL (9.5-12.2); Monocytes # (A) 0.77 X 10*3/uL (0.20-1.00); Monocytes % (A) 5.9 %; NRBC Per 100 WBC 0 X 10*3/uL (0.00-0.01); Neutrophils # (A) 11.47 X 10*3/uL (1.80-7.70); Neutrophils % (A) 87.8 %; Platelet Count 215 X 10*3/uL (140-440); RDW 13.4 % (11.5-14.5); WBC 13.05 X 10*3/uL (4.50-10.00)
[2024-06-02] MEDS: PANTOPRAZOLE 40 MG TABLET PO SCH (08:46)
[2024-06-02] MEDS: FAMOTIDINE 20 MG TAB PO SCH (08:46)
[2024-06-02] MEDS: METOPROLOL SUCCINATE (ER) 25 MG TAB.ER.24H PO SCH (08:46)
[2024-06-02] MEDS: FERROUS SULFATE 325 MG TAB PO SCH (08:46)
[2024-06-02 11:52] LABS: Glucose,Whole Blood 103 mg/dL (70-110)
[2024-06-02] MEDS: MULTIVITAMINS, THERA 1 EACH TAB PO SCH (12:56)
[2024-06-02 16:10] LABS: Glucose,Whole Blood 154 mg/dL (70-110)
[2024-06-02] MEDS: INSULIN ASPART (NovoLOG) 100 UNIT/ML VIAL SQ SCH (17:22)
[2024-06-02 20:16] LABS: Glucose,Whole Blood 143 mg/dL (70-110)
[2024-06-02] MEDS: ACETAMINOPHEN TAB 325 MG TAB PO PRN (21:47)
[2024-06-02] MEDS: MELATONIN 3 MG TABLET PO PRN (22:53)
[2024-06-03 00:39] LABS: Glucose,Whole Blood 170 mg/dL (70-110)
[2024-06-03 06:16] LABS: Glucose,Whole Blood 97 mg/dL (70-110)
--- NOTE | 2024-06-03 07:14 | P.PN ---
Subjective Progress Note Date: 06/03/24 Principal diagnosis: Status post right total hip arthroplasty for severe right hip osteoarthritis on 06/01/2024 No acute events overnight. Patient had difficulty getting up and was unsteady standing at the edge of the bed. Patient had some urinary retention and a Oliva catheter was placed overnight. Patient states they have some pain in their leg from the positioning while g etting Oliva catheter. Patient states their operative hip pain is moderate Objective - Vital Signs Vital signs: Vital Signs Temp 98.3 F 06/03/24 00:35 Pulse 70 06/03/24 00:35 Resp 17 06/03/24 00:35 BP 118/71 06/03/24 00:35 Pulse Ox 97 06/03/24 00:35 FiO2 Intake & Output 06/02/24 06/03/24 06/03/24 18:59 06:59 18:59 Intake Total 240 240 Output Total 1300 Balance 240 -1060 Intake: Oral 240 240 Output: Urine 1300 Uretheral (Oliva) 500 Other: # Voids 3 - Exam A focused exam of the right lower extremity was conducted at bedside this morning. Patient is awake, alert, and able to answer questions. There is a surgical dressing over the right anterior hip, it is clean, dry, intact, without strikethrough. Surrounding the right hip incision there appears to be a fungal infection in the groin. Patient's right thigh has mild swelling. Patient's right femoral nerve function is grossly intact. Patient is able to plantarflex and dorsiflex the right ankles and toes. Patient's foot is well-perfused with c apillary fill under 2 seconds. - Labs CBC & Chem 7: 06/02/24 03:14 Labs: Abnormal Lab Results - Last 24 Hours (Table) 06/02/24 06/02/24 06/02/24 Range/Units 03:14 03:14 16:09 WBC 13.05 H (4.50-10.00) X 10*3/uL RBC 3.10 L (4.10-5.20) X 10*6/uL Hgb 9.8 L (12.0-15.0) g/dL Hct 31.1 L (37.2-46.3) % MCV 100.3 H (80.0-97.0) FL MCHC 31.5 L (32.0-37.0) g/dL Immature Gran # 0.06 H (0.00-0.04) X 10*3/uL Neutrophils # 11.47 H (1.80-7.70) X 10*3/uL Lymphocytes # 0.73 L (0.90-5.00) X 10*3/uL Eosinophils # 0 L (0.04-0.35) X 10*3/uL POC Glucose (mg/dL) 154 H (70-110) mg/dL Hemoglobin A1c 6.9 H (<=6.0) % 06/02/24 06/03/24 Range/Units 20:15 00:37 WBC (4.50-10.00) X 10*3/uL RBC (4.10-5.20) X 10*6/uL Hgb (12.0-15.0) g/dL Hct (37.2-46.3) % MCV (80.0-97.0) FL MCHC (32.0-37.0) g/dL Immature Gran # (0.00-0.04) X 10*3/uL Neutrophils # (1.80-7.70) X 10*3/uL Lymphocytes # (0.90-5.00) X 10*3/uL Eosinophils # (0.04-0.35) X 10*3/uL POC Glucose (mg/dL) 143 H 170 H (70-110) mg/dL Hemoglobin A1c (<=6.0) % Assessment and Plan Assessment: Postop day #2 status post right total hip arthroplasty for severe right hip osteoarthritis on 06/01/2024 Plan: Leave surgical dressing, reinforce as needed. Ordered nystatin powder for right groin. Weight-bear as tolerated with walker and assistance. Patient worked with physical therapy and it was determined patient will need short acute rehab at time of discharge. Patient states they had nausea with oral [place], spoke with nursing staff and will trial Percocet 5, overnight they received Tylenol for pain and this was of benefit. Dispo: Pending resolution of urinary retention and medical clearance, and if pain is controlled with oral Percocet patient may transfer to rehab this afternoon.
[2024-06-03 08:01] VITALS: TEMP 97.9
[2024-06-03] MEDS: oxyCODONE-APAP 5-325MG 1 EACH TAB PO PRN (08:10)
[2024-06-03 09:00] LABS: BUN/Creat Ratio 19.78 Ratio (12.00-20.00); Blood Urea Nitrogen 17.8 mg/dL (9.0-27.0); Calcium 8.6 mg/dL (8.7-10.3); Carbon Dioxide 26.1 mmol/L (21.6-31.8); Chloride 107 mmol/L (96-109); Glucose 95 mg/dL (70-110); Magnesium 1.8 mg/dL (1.5-2.4); Potassium 4.6 mmol/L (3.5-5.5); Sodium 141 mmol/L (135-145)
--- NOTE | 2024-06-03 09:43 | P.CONS ---
History of Present Illness - Reason for Consult Consult date: 06/02/24 Medical management, status post right hip arthroplasty - History of Present Illness This is a very pleasant 88-year-old female who was admitted under orthopedic services underwent right direct anterior total hip arthroplasty. Patient follows with Dr. Calderon Wylie in the outpatient setting with a past medical history of diabetes mellitus, hyperlipidemia, hypertension, osteoarthritis. Patient reports she did follow outpatient for presurgical clearance prior to this admission. Labs reviewed with a mildly elevated white count of 13, likely reactive, hemoglobin stable at 9.8, platelets 215 and hemoglobin A1c is 6.9. Patient to be initiated on Accu-Cheks along with insulin before meals and at bedtime and home medications will be reviewed and reconciled as appropriate. REVIEW OF SYSTEMS: CONSTITUTIONAL: No fever, no malaise, no fatigue. HEENT: No recent visual problems or hearing problems. Denied any sore throat. CARDIOVASCULAR: No chest pain, orthopnea, PND, no palpitations, no syncope. PULMONARY: No shortness of breath, no cough, no hemoptysis. GASTROINTESTINAL: No diarrhea, no nausea, no vomiting, no abdominal pain. NEUROLOGICAL: No headaches, no weakness, no numbness. HEMATOLOGICAL: Denies any bleeding or petechiae. GENITOURINARY: Denies any burning micturition, frequency, or urgency. MUSCULOSKELETAL/RHEUMATOLOGICAL: Denies any joint pain, swelling, or any muscle pain. Reports right hip discomfort ENDOCRINE: Denies any polyuria or polydipsia. The rest of the 14-point review of systems is negative. PHYSICAL EXAMINATION: GENERAL: The patient is alert and oriented x3, not in any acute distress. Well developed, well nourished. Elderly appearing HEENT: Pupils are round and equally reacting to light. EOMI. No scleral icterus. No conjunctival pallor. Normocephalic, atraumatic. No pharyngeal erythema. No thyromegaly. CARDIOVASCULAR: S1 and S2 muffled PULMONARY: Diminished breath sounds bilaterally otherwise chest is clear to auscultation, no wheezing or crackles. ABDOMEN: Soft, nontender, nondistended, normoactive bowel sounds. No palpable organomegaly. MUSCULOSKELETAL: No joint swelling or deformity. EXTREMITIES: No cyanosis, clubbing, or pedal edema. NEUROLOGICAL: Gross neurological examination did not reveal any focal deficits. Diffusely weak SKIN: No rashes. Assessment: Status post right anterior direct total hip arthroplasty History of osteoarthritis History of diabetes mellitus, type II, insulin-dependent History of hypertension History of hyperlipidemia GI prophylaxis DVT prophylaxis Full code Plan: Patient admitted under orthopedic services status post right total hip arthroplasty reports to doing well and continues with discomfort of the right hip. Patient is a diabetic and will initiate long-acting along with sliding scale and recommend to continue with Accu-Cheks before meals and at bedtime and will adjust accordingly Encouraged incentive spirometer use at least 10 times every hour while awake PT/OT therapy to evaluate for possible ECF versus home with home care Other home medications reviewed and resumed as appropriate Thank you kindly for this consultation. We will continue to follow with orthopedics during hospitalization The impression and plan of care has been dictated by Lyndsey Wilson, Nurse Practitioner as directed. Dr. Rusty MD I have performed a history and examination and MDM of this patient, discussed the same with the dictator, and agree with the dictator's assessment and plan as written ,documented as a scribe. Based on total visit time, I have performed more than 50% of the visit. Past Medical History Past Medical History: Diabetes Mellitus, Hyperlipidemia, Hypertension, Osteoarthritis (OA) Additional Past Medical History / Comment(s): "Slight RI with stent 2021". History of Any Multi-Drug Resistant Organisms: None Reported Past Surgical History: Heart Catheterization With Stent, Hysterectomy, Orthopedic Surgery Additional Past Surgical History / Comment(s): Left hip replacement. Past Anesthesia/Blood Transfusion Reactions: Motion Sickness, Postoperative Nausea & Vomiting (PONV) Date of Last Stent Placement:: 2021 Past Psychological History: No Psychological Hx Reported Smoking Status: Never smoker Past Alcohol Use History: None Reported Past Drug Use History: None Reported - Past Family History Sister(s) Family Medical History: Cancer Additional Family Medical History / Comment(s): Breast cancer. Medications and Allergies Home Medications Medication Instructions Recorded Confirmed Type Ergocalciferol (Vitamin D2) 1,250 mcg PO STEPHENSON 07/20/22 06/01/24 History [Drisdol (50,000 Iu)] Insulin Glargine,Hum.rec.anlog 50 units SQ HS 07/20/22 06/01/24 History [Lantus Solostar Pen] Insulin Lispro [humaLOG Kwikpen] See Protocol SQ TID-W/MEALS 07/20/22 06/01/24 History Metoprolol Succinate [Metoprolol 25 mg PO QAM 07/20/22 06/01/24 History Succinate ER] Pantoprazole [Protonix] 40 mg PO BID 07/20/22 06/01/24 History hydrALAZINE HCL [Apresoline] 25 mg PO BID-W/MEALS 07/20/22 06/01/24 History Docusate [Colace] 100 mg PO DAILY PRN 09/29/23 06/01/24 History Ferrous Sulfate [Iron (65 MG 325 mg PO DAILY 09/29/23 06/01/24 History Elemental)] Losartan [Cozaar] 25 mg PO QAM 09/29/23 06/01/24 History Multivit-Min/Iron/Folic/Lutein 1 tab PO DAILY 09/29/23 06/01/24 History [Centrum Silver Women Tablet] Aspirin [Adult Low Dose Aspirin EC] 81 mg PO DAILY 05/27/24 06/01/24 History Cholesterol Pill Unknown Name 1 tab PO HS 05/27/24 06/01/24 History Aspirin 81 mg PO BID #60 tab 06/02/24 Rx Docusate [Colace] 100 mg PO BID #60 capsule 06/02/24 Rx Omeprazole 20 mg PO DAILY #30 tab 06/02/24 Rx Ondansetron [Zofran] 4 mg PO Q6HR PRN #30 tab 06/02/24 Rx Acetaminophen [Acetaminophen ER] 650 mg PO Q6HR PRN #60 tab 06/03/24 Rx Allergies Allergy/AdvReac Type Severity Reaction Status Date / Time No Known Allergies Allergy Verified 06/01/24 11:53 Physical Exam Vitals: Vital Signs Temp Pulse Resp BP BP Pulse Ox 06/02/24 08:39 97.9 F 68 17 119/53 06/02/24 01:03 97.6 F 61 16 118/51 98 06/01/24 19:20 97.6 F 67 17 123/68 98 06/01/24 18:05 62 114/68 98 06/01/24 17:50 56 L 117/57 98 06/01/24 17:35 59 L 115/66 96 06/01/24 17:20 67 123/57 98 06/01/24 17:05 55 L 122/68 100 06/01/24 16:50 53 L 121/67 100 06/01/24 16:35 97.6 F 59 L 16 120/63 97 06/01/24 16:12 64 16 124/67 100 06/01/24 15:57 53 L 16 132/63 100 06/01/24 15:42 72 16 127/59 100 06/01/24 15:27 97.6 F 87 16 137/68 100 06/01/24 12:25 70 16 142/65 100 06/01/24 11:55 97.8 F 69 16 145/66 98 Intake and Output 06/01/24 06/02/24 06/02/24 22:59 06:59 14:59 Intake Total 150 Output Total 300 400 Balance -150 -400 Intake: IV 150 Output: Urine 400 Straight 400 Estimated Blood Loss 300 Other: Weight 58.5 kg Results CBC & Chem 7: 06/02/24 03:14 Labs: Abnormal Lab Results - Last 24 Hours (Table) 06/01/24 06/01/24 06/01/24 Range/Units 12:07 17:17 20:57 WBC (4.50-10.00) X 10*3/uL RBC (4.10-5.20) X 10*6/uL Hgb (12.0-15.0) g/dL Hct (37.2-46.3) % MCV (80.0-97.0) FL MCHC (32.0-37.0) g/dL Immature Gran # (0.00-0.04) X 10*3/uL Neutrophils # (1.80-7.70) X 10*3/uL Lymphocytes # (0.90-5.00) X 10*3/uL Eosinophils # (0.04-0.35) X 10*3/uL POC Glucose (mg/dL) 180 H 258 H 224 H (70-110) mg/dL Hemoglobin A1c (<=6.0) % 06/02/24 06/02/24 06/02/24 Range/Units 03:14 03:14 06:59 WBC 13.05 H (4.50-10.00) X 10*3/uL RBC 3.10 L (4.10-5.20) X 10*6/uL Hgb 9.8 L (12.0-15.0) g/dL Hct 31.1 L (37.2-46.3) % MCV 100.3 H (80.0-97.0) FL MCHC 31.5 L (32.0-37.0) g/dL Immature Gran # 0.06 H (0.00-0.04) X 10*3/uL Neutrophils # 11.47 H (1.80-7.70) X 10*3/uL Lymphocytes # 0.73 L (0.90-5.00) X 10*3/uL Eosinophils # 0 L (0.04-0.35) X 10*3/uL POC Glucose (mg/dL) 154 H (70-110) mg/dL Hemoglobin A1c 6.9 H (<=6.0) %
--- NOTE | 2024-06-03 10:32 | P.DS ---
Providers Date of admission: 06/01/24 15:25 Attending physician: Tavares Dillon Consults: 06/01/24 15:24 Consult Physician Routine Consulting Provider: Pankaj Egan Consult Reason/Comments: Postop right total hip arthroplasty medical management Do you want consulting provider notified?: Yes Primary care physician: [facility] Course: This is a 88-year-old female patient who has right hip osteoarthritis who failed conservative treatment. Patient presented to preop for scheduled right total hip arthroplasty on 06/01/[address] Dillon. Patient tolerated the procedure well. Patient was transferred to the orthopedic floor. In the postoperative period patient had difficulty ambulating, and some urinary retention. Patient worked with physical therapy and was determined patient will need short acute rehab. Patient had urinary retention and a Oliva catheter was placed. Patient was seen by medicine. Patient had nausea with [place]. Patient did not have nausea with Percocet, and their pain has been controlled with oral Percocet. Patient was examined at bedside this morning and was doing well. Patient will transfer to [facility] acute rehab. Assessment: Subcu #2 status post right direct anterior total hip arthroplasty for right hip osteoarthritis Plan - Discharge Summary Discharge Rx Participant: No New Discharge Prescriptions: New Aspirin 81 mg PO BID #60 tab Ondansetron [Zofran] 4 mg PO Q6HR PRN #30 tab PRN Reason: Nausea Docusate [Colace] 100 mg PO BID #60 capsule Omeprazole 20 mg PO DAILY #30 tab Acetaminophen [Acetaminophen ER] 650 mg PO Q6HR PRN #60 tab PRN Reason: Pain oxyCODONE-APAP 5-325MG [Percocet 5-325 mg] 1 tab PO Q6HR PRN #28 tab PRN Reason: Pain Continue Pantoprazole [Protonix] 40 mg PO BID Metoprolol Succinate [Metoprolol Succinate ER] 25 mg PO QAM Ergocalciferol (Vitamin D2) [Drisdol (50,000 Iu)] 1,250 mcg PO STEPHENSON Docusate [Colace] 100 mg PO DAILY PRN PRN Reason: Takes with Iron Multivit-Min/Iron/Folic/Lutein [Centrum Silver Women Tablet] 1 tab PO DAILY Losartan [Cozaar] 25 mg PO QAM Ferrous Sulfate [Iron (65 MG Elemental)] 325 mg PO DAILY Cholesterol Pill Unknown Name 1 tab PO HS hydrALAZINE HCL [Apresoline] 25 mg PO BID-W/MEALS Insulin Lispro [humaLOG Kwikpen] See Protocol SQ TID-W/MEALS Insulin Glargine,Hum.rec.anlog [Lantus Solostar Pen] 50 units SQ HS Discontinued Aspirin [Adult Low Dose Aspirin EC] 81 mg PO DAILY Discharge Medication List Ergocalciferol (Vitamin D2) [Drisdol (50,000 Iu)] 1,250 mcg PO STEPHENSON 07/20/22 [History] Insulin Glargine,Hum.rec.anlog [Lantus Solostar Pen] 50 units SQ HS 07/20/22 [History] Insulin Lispro [humaLOG Kwikpen] See Protocol SQ TID-W/MEALS 07/20/22 [History] Metoprolol Succinate [Metoprolol Succinate ER] 25 mg PO QAM 07/20/22 [History] Pantoprazole [Protonix] 40 mg PO BID 07/20/22 [History] hydrALAZINE HCL [Apresoline] 25 mg PO BID-W/MEALS 07/20/22 [History] Docusate [Colace] 100 mg PO DAILY PRN 09/29/23 [History] Ferrous Sulfate [Iron (65 MG Elemental)] 325 mg PO DAILY 09/29/23 [History] Losartan [Cozaar] 25 mg PO QAM 09/29/23 [History] Multivit-Min/Iron/Folic/Lutein [Centrum Silver Women Tablet] 1 tab PO DAILY 09/29/23 [History] Cholesterol Pill Unknown Name 1 tab PO HS 05/27/24 [History] Aspirin 81 mg PO BID #60 tab 06/02/24 [Rx] Docusate [Colace] 100 mg PO BID #60 capsule 06/02/24 [Rx] Omeprazole 20 mg PO DAILY #30 tab 06/02/24 [Rx] Ondansetron [Zofran] 4 mg PO Q6HR PRN #30 tab 06/02/24 [Rx] Acetaminophen [Acetaminophen ER] 650 mg PO Q6HR PRN #60 tab 06/03/24 [Rx] oxyCODONE-APAP 5-325MG [Percocet 5-325 mg] 1 tab PO Q6HR PRN #28 tab 06/03/24 [Rx] Follow up Appointment(s)/Referral(s): Monster Metcalf, [NON-STAFF] - As Needed Tavares Dillon MD [Medical Doctor] - 2 Weeks Activity/Diet/Wound Care/Special Instructions: 1. Weight-bear as tolerated on your operative extremity unless instructed otherwise. Use a walker or other assistive device to ambulate. 2. Leave surgical dressing in place. If your dressing becomes saturated with blood, there is drainage, or the dressing becomes loose please contact the office. 3. It is okay to shower with your surgical dressing, but do not submerge in water (no hot tubs, bath's, swimming etc.) 4. Take your blood clot prevention medication as prescribed (aspirin, Eliquis, Xarelto, and Plavix are commonly prescribed medications for blood clot prevention) 5. While taking [place] or Percocet for pain take a stool softener (Ex: Colace) and drink lots of water. 6. Keep all follow-up appointments as scheduled. You will usually be seen in 1-2 weeks following surgery. 7. Please contact the office with any questions or concerns [phone] Discharge Disposition: TRANSFER TO SNF/ECF
[2024-06-03 11:56] LABS: Glucose,Whole Blood 310 mg/dL (70-110)
[2024-06-03] MEDS: TAMSULOSIN 0.4 MG CAP.ER.24H PO STA (13:42)
[2024-06-03 13:56] VITALS: BP 132/75; PULSE 70; RESP 16
--- NOTE | 2024-06-04 05:25 | P.PN ---
Subjective Progress Note Date: 06/03/24 - Reason for Consult Consult date: 06/02/24 Medical management, status post right hip arthroplasty - History of Present Illness This is a very pleasant 88-year-old female who was admitted under orthopedic services underwent right direct anterior total hip arthroplasty. Patient follows with Dr. Calderon Wylie in the outpatient setting with a past medical history of diabetes mellitus, hyperlipidemia, hypertension, osteoarthritis. Patient reports she did follow outpatient for presurgical clearance prior to this admission. Labs reviewed with a mildly elevated white count of 13, likely reactive, hemoglobin stable at 9.8, platelets 215 and hemoglobin A1c is 6.9. Patient to be initiated on Accu-Cheks along with insulin before meals and at bedtime and home medications will be reviewed and reconciled as appropriate. 06/03/2024 Patient seen and evaluated in follow-up this morning scheduled to go to [facility] today. Per nursing staff patient was retaining overnight requiring indwelling Oliva catheter. Will initiate Flomax and also continue on Flomax for the next few days and trial void outpatient once more mobile. Patient is afebrile denies any chest pain or shortness of breath. Patient has been tolerating diet and den ies any nausea or vomiting. Patient is medically stable for continued rehab at [facility]. Recommend avoiding narcotics if possible given her age and mentation. Seroquel as needed at night for agitation Review of systems: Constitutional: No reports of fatigue, fever, or chills Cardiovascular: No reports of chest pain or palpitations Respiratory: No reports of shortness of breath or cough GI: No reports of nausea, vomiting, or diarrhea : No reports of dysuria, was retaining requiring Oliva catheter Neurovascular: reports of weakness and right hip pain All medications have been reviewed PHYSICAL EXAMINATION: GENERAL: The patient is alert and oriented x2, not in any acute distress. Confused at times. Well developed, well nourished. Elderly appearing HEENT: Pupils are round and equally reacting to light. EOMI. No scleral icterus. No conjunctival pallor. Normocephalic, atraumatic. No pharyngeal erythema. No thyromegaly. CARDIOVASCULAR: S1 and S2 muffled PULMONARY: Diminished breath sounds bilaterally otherwise chest is clear to auscultation, no wheezing or crackles. ABDOMEN: Soft, nontender, nondistended, normoactive bowel sounds. No palpable organomegaly. MUSCULOSKELETAL: No joint swelling or deformity. EXTREMITIES: No cyanosis, clubbing, or pedal edema. Right hip surgical site is dry and intact with some minimal swelling noted NEUROLOGICAL: Gross neurological examination did not reveal any focal deficits. Diffusely weak SKIN: No rashes. Assessment: Status post right anterior direct total hip arthroplasty History of osteoarthritis History of diabetes mellitus, type II, insulin-dependent Urinary retention requiring indwelling Oliva catheter History of hypertension History of hyperlipidemia GI prophylaxis DVT prophylaxis Full code Plan: Patient admitted under orthopedic services status post right total hip arthroplasty reports to doing well and continues with discomfort of the right hip. Patient is a diabetic and will continue long-acting along with sliding scale and recommend to continue with Accu-Cheks before meals and at bedtime and will adjust accordingly Encouraged incentive spirometer use at least 10 times every hour while awake PT/OT evaluated and patient will be going to [facility]. Insurance authorization was obtained Other home medications reviewed and resumed as appropriate. Will add Seroquel as needed at night Per nursing staff patient was retaining requiring indwelling Oliva catheter. Recommend to continue with this for now and will initiate Flomax and trial void outpatient Patient is medically stable for discharge to [facility] once cleared by orthopedics Thank you kindly for this consultation. We will continue to follow with orth opedics during hospitalization The impression and plan of care has been dictated by Lyndsey Wilson, Nurse Practitioner as directed. Dr. Rusty MD I have performed a history and examination and MDM of this patient, discussed the same with the dictator, and agree with the dictator's assessment and plan as written ,documented as a scribe. Based on total visit time, I have performed more than 50% of the visit. Objective - Vital Signs Vital signs: Vital Signs Temp 97.9 F 06/03/24 08:00 Pulse 74 06/03/24 08:00 Resp 17 06/03/24 08:00 BP 161/77 06/03/24 08:00 Pulse Ox 94 L 06/03/24 08:00 FiO2 Intake & Output 06/02/24 06/03/24 06/03/24 18:59 06:59 18:59 Intake Total 240 240 Output Total 1300 Balance 240 -1060 Intake: Oral 240 240 Output: Urine 1300 Uretheral (Oliva) 500 Other: Voiding Method Indwelling Catheter # Voids 3 - Labs CBC & Chem 7: 06/02/24 03:14 06/03/24 04:31 Labs: Abnormal Lab Results - Last 24 Hours (Table) 06/02/24 06/02/24 06/03/24 Range/Units 16:09 20:15 00:37 POC Glucose (mg/dL) 154 H 143 H 170 H (70-110) mg/dL Calcium (8.7-10.3) mg/dL 06/03/24 Range/Units 04:31 POC Glucose (mg/dL) (70-110) mg/dL Calcium 8.6 L (8.7-10.3) mg/dL
[2024-06-05] MEDS ORDERED: ERGOCALCIFEROL 1,250 MCG (50,000 IU) CAPSULE PO SCH (09:00)
--- NOTE | 2024-06-10 18:16 | CDI ---
Documentation Clarification Form Date: 06/10/2024 06:05:04 PM From: Catherine Valdes Phone: Admit Date: 06/01/2024 03:25:00 PM Patient Name: Mesha Chahal Visit Number: [id number] Discharge Date: 06/03/2024 02:47:00 PM ATTENTION: The Clinical Documentation Specialists (CDI) and [facility] Coding Staff appreciate your assistance in clarifying documentation. Please respond to the clarification below the line at the bottom and electronically sign. The CDI & [facility] Coding staff will review the response and follow-up if needed. Please note: Queries are made part of the Legal Health Record. If you have any questions, please contact the author of this message via ITS. Doctor/Provider: Nancy Ojeda Your patient has an Hgb A1C 7.2. Please clarify if there is an additional diagnosis and/or clinical significance related to this value. History/Risk Factors: 88yo F, spanterior directRTHA, OA, IDDMII, urinary retentionrequiring indwellingFC, HTN, HLD, Hx [place] Home Meds: Insulin Glargine,Hum.rec.anlog 50 units SQ HS [Lantus Solostar Pen]; Insulin Lispro [humaLOG Kwikpen] SQ TID-W/MEALS Clinical indicators: POC Glucose: 06/02 154-258 06/03 143-154 Treatment: initiated on Accu-Cheks along with insulin before meals and at bedtime and home medications will be reviewed and reconciled as appropriate. Is there an additional diagnosis and/or clinical significance related to the above lab result/information? [ x ] Diabetes mellitus with hyperglycemia [ ] Diabetes mellitus no complications [ ] No additional diagnosis/Not clinically significant [ ] Other, please specify [ ] Unable to determine (Template Last Revised: September 2020) MTDD
== END 2024-06-03 14:47 | DRG 470 ==
LOC: OR 11:13 → 4SSUR 15:25
PROVIDERS: ADMIT Orthopaedic Surgery; ATTEND Orthopaedic Surgery
PROC: 0SR90J9 Replacement of Right Hip Joint with Synthetic Substitute, Cemented, Open Approach (ICD-10-PCS; principal; 2024-06-01 16:00)
DX: M16.11 Unilateral primary osteoarthritis, right hip (principal); E11.65 Type 2 diabetes mellitus with hyperglycemia; Z79.4 Long term (current) use of insulin; I10 Essential (primary) hypertension; E78.5 Hyperlipidemia, unspecified; M85.851 Other specified disorders of bone density and structure, right thigh; I25.10 Atherosclerotic heart disease of native coronary artery without angina pectoris; R33.9 Retention of urine, unspecified; R11.0 Nausea; T40.2X5A Adverse effect of other opioids, initial encounter; M19.90 Unspecified osteoarthritis, unspecified site; Z96.642 Presence of left artificial hip joint; I25.2 Old myocardial infarction; Z95.5 Presence of coronary angioplasty implant and graft; Z79.82 Long term (current) use of aspirin; Z79.899 Other long term (current) drug therapy; Z87.81 Personal history of (healed) traumatic fracture
CPT/HCPCS: 64447; 73501; 80048; 83036; 83735; 85025; 86850; 86900; 86901